=== PATIENT | male | born 1940 | race Caucasian/White ===

== ENCOUNTER 2016-06-08 15:47 | Inpatient (IN) | payer OTHER, MEDICARE ==
[2016-06-08] MEDS ORDERED: NS 500 ML IV ONE (16:05)
[2016-06-08] MEDS ORDERED: ACETAMINOPHEN 325 MG TAB PO PRN (16:05)
[2016-06-08] MEDS ORDERED: ONDANSETRON DISINTEGRATING 4 MG TAB PO PRN (16:05)
[2016-06-08] MEDS ORDERED: ONDANSETRON 4 MG/2 ML VIAL IVP PRN (16:05)
--- NOTE | 2016-06-08 17:15 | GHP ---
[f rep st] HISTORY AND PHYSICAL DATE OF ADMISSION: 06/08/2016 CHIEF COMPLAINT: Rash. HISTORY OF PRESENT ILLNESS: A 75-year-old male with a history of rectal carcinoma receiving active chemotherapy (most recent treatment was 2 weeks ago), who reports lying out in the sun during the go od weather and waking from a nap noting what he thought was either a bug or spider bite. Patient th en developed some tenderness in his forearm on that arm and then ultimately noted marked erythema an d streaking up his arm today. Patient decided to present to the Oncology Clinic for evaluation. Rigo arteaga denies any subjective fevers or chills. Denies any nausea or vomiting. Denies changes in his bowel habits, dysuria, hematuria, chest pain, and shortness of breath. SOCIAL HISTORY: Negative for tobacco. Patient is a recovering alcoholic. Denies any marijuana or illicit drugs. FAMILY HISTORY: Positive for prostate cancer in a brother. ADVANCED DIRECTIVES: Patient is full cor/full tube. His would be his medical decision maker. REVIEW OF SYSTEMS: A 10-point review of systems is negative with the exception of that reported in the HPI. PHYSICAL EXAMINATION: VITAL SIGNS: Blood pressure 120/80, heart rate 80s. Patient is afebrile, re spiratory rate 12, saturating mid 90s on room air. GENERAL: This is a healthy-appearing male in no acute distress. HEENT: Notable for moist mucous membranes. Eye exam is negative for any icterus. CARDIAC: Regular rate and rhythm. No murmurs, gallops, or rubs. PULMONARY: Clear to auscultati on bilaterally. GASTROINTESTINAL: Positive bowel sounds. Abdomen is soft and nontender in all 4 q uadrants. MUSCULOSKELETAL: Negative for any lower extremity edema. The right forearm has a notabl e punctate area consistent with a spider or bug bite with surrounding discoloration, consistent with possible necrosis, and erythema surrounding and streaking up his forearm. No axillary lymphadenopa thy is appreciated. NEUROLOGIC: The patient is alert and oriented x3. PSYCHIATRIC: Pleasant and c ooperative on interview and examination. DATA: White count is 0.49, hematocrit is 30.5, platelet count of 78. Sodium is 132, creatinine 0.9 . ASSESSMENT AND PLAN: This is a 75-year-old neutropenic male presenting with new cellulitis. 1. Acute cellulitis: Unclear prompted by a bug or spider bite. Does have extending erythema and s treaking up his arm. Will order ultrasound to rule out superficial thrombophlebitis, order blood cu ltures, and initiate broad-spectrum IV antibiotics with vancomycin and cefepime. 2. Neutropenia: Patient is 2 weeks status post his most recent chemotherapy treatment. Will monit or his counts daily. 3. Hyponatremia: Presumed hypovolemic in nature. Will give a small fluid bolus and recheck in the morning. 4. Anorexia: The patient has had very poor appetite through his chemotherapy. He has been treated with oral prednisone. We will taper that dose down to [address] Hilton, his outpatient oncologi st. 5. Hypertension: Patient is presenting normotensive. Will continue to follow his blood pressures and continue his home medications if appropriate. 6. Prophylaxis: Will hold Lovenox with platelet count of 70. DIET: Regular. DISPOSITION: Expecting greater than 2 midnights as the patient is neutropenic with an acute infecti on requiring IV antibiotics and monitoring. I discussed the case with the Dr. Singh from Oncology. Patient will be admitted to [address] [place] [id number] for IV antibiotics and care. /[id number]/MODL
[2016-06-08] MEDS: FILGRASTIM-SNDZ 480 MCG/0.8 ML SYR SC SCH (17:49)
[2016-06-08] MEDS: VANCOMYCIN HCL/NORMAL SALINE 250 ML IV SCH (17:49)
--- NOTE | 2016-06-08 18:56 | GCON ---
[f rep st] CONSULTATION ONCOLOGY INITIAL VISIT PRIMARY ONCOLOGIST: Dr. Darline Hilton. REASON FOR VISIT: Metastatic rectal cancer. HISTORY OF PRESENT ILLNESS: The patient is a 75-year-old gentleman who was diagnosed July 2015 with both a rectal cancer and a colon cancer. The rectal cancer was stage II and removed in a transanal resection. The colon cancer was also resected with a right hemicolectomy showing a stage IIIC malignancy with a T3 N2 with 14/17 positive lymph nodes. He received adjuvant FOLFOX through January 2016. In April, he was diagnosed with metastatic colon cancer to the liver, and about 2 weeks ago, he was started on FOLFIRI plus bevacizumab. 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 This was initially diagnosed in 2005 and was a grade 3+3, and treated with brachytherapy. In about 2011, he had a rising PSA and initially started on Lupron. He apparently received a dose of Xofigo in 2014, which initially seemed to cause some alteration of bowel habits and that led to the colonoscopy in which the adenocarcinoma of the colon was identified. He came into the office today complaining of redness in the right forearm by what he thinks was an insect bite. He was outside yesterday, and he noticed some discomfort and redness in his right arm. It has progressively gotten worse , and his insisted that he have it checked out today. It was in the office where they identified what appeared to be a cellulitis on the arm, but he was also significantly neutropenic. He was admitted to the hospital for antibiotics. He is currently afebrile. ALLERGIES: He has no known drug allergies. HOME MEDICATIONS: Include tamsulosin, sertraline, metoprolol, lisinopril, herbs , and also the intermittent Lupron, and the chemotherapies per HPI. PAST MEDICAL HISTORY: Chronic illnesses include metastatic colorectal cancer per HPI, prostate cancer per HPI, depression, hypertension, cholelithiasis. SURGICAL HISTORY: Includes bilateral inguinal repair, the right hemicolectomy, the transanal resection. He has had the brachytherapy to his prostate cancer. SOCIAL HISTORY: He is . He is retired from [employer]. He was previously an alcoholic, but has not drank for 24 years. He is a nonsmoker. FAMILY HISTORY: Brother has metastatic prostate cancer, and sister with breast cancer. REVIEW OF SYSTEMS: 10-point review of systems performed. Pertinent positives HPI. PHYSICAL EXAM: VITAL SIGNS: Temperature today is 98.9, pulse is 83, blood pressure 120/80. GENERAL: He is in no distress. HEENT: Unremarkable. RESPIRATORY: Lungs are clear. CARDIAC: Regular. ABDOMEN: Soft, nontender. SKIN: He has a port on the left. In the bed without under skin. Also on the skin, on his right forearm, he has what looks like an eschar that is expressing some serosanguineous fluid and significant surrounding erythema going up the forearm. NEUROLOGIC: Grossly intact. LABS: Today, white count is 500 with an ANC of less than 100, hemoglobin is 10.2 g/dL, platelet count 78,000. LFTs, alkaline phosphatase at the time of treatment was 385. It was 292 last week and 228 this week. His bilirubin is normal at 1.4. His AST and ALT are now normal, with them being significantly elevated at the time of chemotherapy. IMPRESSION: 1. Neutropenia. 2. Cellulitis. 3. Metastatic colon cancer. 4. Metastatic prostate cancer. PLAN: Cultures will be drawn and started on broad-spectrum antibiotics. Also recommend we get an ultrasound of the right arm to make sure he also does have an associated clot. Because he has active infection, I will start him on Granix tonight to help his white count come back faster. With the severe reaction, I will also check to see if he is sensitive to the effects of irinotecan. He also had some lowish counts during the 5-FU, so I will also check for those mutations as well. We will follow along with you while in the hospital. /[id number]/MODL MTDD
[2016-06-08] MEDS: HYDROCODONE/APAP 5/325 TAB PO PRN (19:51)
[2016-06-08] MEDS: CEFEPIME HCL 2 GM in D5W 100 ML IV SCH (19:51)
[2016-06-08] MEDS: METOPROLOL SUCCINATE XR 100 MG TAB PO SCH (20:41)
[2016-06-09] MEDS: CEFEPIME HCL 2 GM in D5W 100 ML IV SCH ×3 (01:33→19:23)
[2016-06-09] MEDS: HYDROCODONE/APAP 5/325 TAB PO PRN ×2 (04:47→09:04)
[2016-06-09] MEDS: VANCOMYCIN HCL/NORMAL SALINE 250 ML IV SCH ×2 (04:47→17:33)
[2016-06-09 04:53] LABS: ABSOLUTE NRBC COUNT 0.02 10^3/uL (0-0.01); ADD DIFF? NO; ADD MORPH? NO; ADD SCAN? YES; ATYPICAL LYMPHOCYTE FLAG 0 (0-99); FRAGMENT RBC FLAG 0 (0-99); HEMATOCRIT 31.2 % (40.0-51.0); HEMOGLOBIN 10.1 g/dL (13.7-17.5); LIPEMIA HEMOLYSIS FLAG 80 (0-99); MEAN CELL HEMOGLOBIN 29.2 pg (27.9-34.1); MEAN CELL HEMOGLOBIN CONCENTR. 32.4 g/dL (32.4-36.7); MEAN CELL VOLUME 90.2 fL (81.5-99.8); MEAN PLATELET VOLUME 10.6 fL (8.7-11.7); NRBC-AUTO% 0.7 % (0.0-0.2); PLATELET CLUMPS FLAG 0 (0-99); PLATELET COUNT 101 10^3/uL (150-400); RED BLOOD CELL COUNT 3.46 10^6/uL (4.40-6.38); RED CELL DISTRIBUTION WIDTH 18.2 % (11.5-15.2)
[2016-06-09 05:06] LABS: ANION GAP 12 mEq/L (8-16); CALCIUM 8.2 mg/dL (8.5-10.4); CARBON DIOXIDE 18 mEq/l (22-31); CHLORIDE 102 mEq/L (97-110); GLOMERULAR FILTRATION RATE > 60; GLUCOSE 93 mg/dL (70-100); SODIUM 132 mEq/L (134-144)
[2016-06-09 05:15] LABS: LEFT SHIFT FLG 130 (0-99)
[2016-06-09 05:47] LABS: SCAN POSITIVE
[2016-06-09 05:55] LABS: PLATELET ESTIMATE DECREASED (ADEQ)
[2016-06-09 05:56] LABS: MACROCYTES 1+; MICROCYTES 1+; POLYCHROMASIA 1+
[2016-06-09 05:57] LABS: HYPOCHROMIA 1+
[2016-06-09] MEDS ORDERED: Herbals/Supplements -Info Only PO SCH (09:00)
[2016-06-09] MEDS: predniSONE 20 MG TAB PO SCH (09:03)
[2016-06-09] MEDS: CHOLECALCIFEROL VIT D3 2,000 UNITS TAB/CAP PO SCH (09:03)
[2016-06-09] MEDS: SERTRALINE HCL 50 MG TAB PO SCH (09:03)
[2016-06-09] MEDS: LISINOPRIL 40 MG TAB PO SCH (13:27)
[2016-06-09] MEDS: ENOXAPARIN 40 MG/0.4 ML SYR SC SCH (13:28)
[2016-06-09] MEDS: FILGRASTIM-SNDZ 480 MCG/0.8 ML SYR SC SCH (13:28)
--- NOTE | 2016-06-09 13:37 | HOSPPROG ---
Hospitalist Progress Note Assessment/Plan: DIAGNOSES: -acute cellulitis right upper extremity, Pseudomonas growing in culture so far -pancytopenia with neutropenia from his chemotherapy; immune suppression due to this -colorectal cancer on current chemotherapy -hypertension PLANS: -continue cefepime for Pseudomonas, follow for antibiotic sensitivities -Continue vancomycin for the moment until cultures are negative for 48 hours for any staff -elevation and heat for the arm -dressing changes for the open area on his wrist -continue Granix -Continue Lovenox -follow cell counts closely SUBJECTIVE: Still using narcotic analgesic for pain at the cellulitis area but feels slightly better Still having hot Sitz of flashes with sweats Poor appetite OBJECTIVE Vitals reviewed: So far today stable with no fever Exam: alert oriented skin warm dry, overall color ok; cellulitic areas on his right upper extremity are improved in terms of the intensity of redness with resolution of the redness around the periphery. He still has an ecchymotic area at the site of onset of this infection with a 0.6 cm opening centrally draining a slightly opaque yellowish fluid; there is no palpable abscess here and he is moving all of his wrist hand and fingers groups with full range of motion without pain resps not labored lungs clear BSs heart regular abd soft nondistended nontender, bowel sounds present limbs warm, no edema iv site ok Culture data: Pseudomonas growing now from all blood cultures sensitivities pending Objective: Vital Signs Temp Pulse Resp BP Pulse Ox 36.4 C 59 L 20 127/69 H 99 06/09/16 08:59 06/09/16 13:14 06/09/16 13:14 06/09/16 13:27 06/09/16 13:14 Microbiology 06/08/16 17:20 Blood Panel (PCR) - Final Blood Pseudomonas Aeruginosa Laboratory Results 06/09/16 04:25 06/09/16 04:25 06/08/16 06/09/16 06/10/16 06:59 06:59 06:59 Intake Total 1250 Output Total 500 200 Balance 750 -200 ICD10 Worksheet Patient Problems: Problems Problem Status Onset Cellulitis Acute - ICD10 Problem Qualifiers (1) Cellulitis Qualifiers: Site of cellulitis: S Site of cellulitis of extremity: S Site of cellulitis of trunk: S Laterality: L
--- NOTE | 2016-06-09 14:56 | SOAPPROG ---
SOAP Progress Note Assessment/Plan: E&M for colon cancer * Metastatic colon cancer; day 15 cycle 1 Folfiri + Avastin: [id number] and DPD sent to look for deficiency. Next cycle on hold until recovery. * RUE cellulitis: improving with abx * Febrile neutropenia: resolving; since has concurrent infection will continue Zarxio until ANC>3000 * Pseudomonas Bacteremia: continue iv abx until sensitivities. Not sure if related to arm wound. Subjective: A lot of pain at the right arm wound overnight. Better today. Had some loose stools and unaware overnight that he had had a BM. Objective: Vital Signs Temp Pulse Resp BP Pulse Ox 35.8 C L 59 L 20 127/69 H 99 06/09/16 13:37 06/09/16 13:14 06/09/16 13:14 06/09/16 13:27 06/09/16 13:14 Microbiology 06/08/16 17:20 Blood Panel (PCR) - Final Blood Pseudomonas Aeruginosa Laboratory Results 06/09/16 04:25 06/09/16 04:25 06/08/16 06/09/16 06/10/16 05:59 05:59 05:59 Intake Total 1250 Output Total 500 200 Balance 750 -200 Microbiology 06/08/16 17:20 Blood Blood Panel (PCR) - Final Pseudomonas Aeruginosa 06/08/16 17:20 Blood Blood Culture - Preliminary Laboratory Tests 06/09/16 04:25 WBC 2.82 L Absolute Neuts (auto) 0.47 L Absolute Lymphs (auto) 1.86 Physical Exam - Physical Exam General Appearance: no apparent distress Respiratory: lungs clear Cardiac/Chest: regular rate, rhythm Skin: other (RUE with much less erythema and swelling; primary wound covered with dressing.) ICD10 Worksheet Patient Problems: Problems Problem Status Onset Cellulitis Acute
--- NOTE | 2016-06-09 15:19 | WOCRNPDOC ---
WOCRN Advanced Assessment Note - Skin Integrity Problem, Advanced Assess Right Lower Arm Dressing Type: Allevyn Life Dressing Description: Intact, Shadowed Exudate Amount: Scant Exudate Color: Reddish/Yellow Exudate Characteristic(s): Serosanguinous Integumentary Issue Intervention: Dressing Reinforced, Visualized Under Dressing , Silver Gel Applied Charlette Wound Tissue: Ecchymotic, Erythema (marked in ED) Charlette Wound Swelling: Mild Wound Bed Color: Red Site Odor: None Site Measurement - Head-to-Toe Length X Width X Depth (cm): 1wct1sv area of ecchymosis w/ 0.2cmx0.3cmx0.1cm wound medially. Skin Integrity Problem Comment: Small partial-thickness wound noted on RFA, within a slightly larger area of ecchymotic tissue and loose epithelium. This has the appearance of a draining/partially de-roofed blister, though patient denies that it was ever a blister. Epithelium surrounding wound is thin and friable, and was adhered to the foam dressing when site assessed. Marked erythema noted on RFA extending from R wrist to RUE, receding from these margins. No swelling and no c/o pain. Applied Silvasorb gel to wound bed, and covered w/ Adaptic Touch contact layer to prevent skin from sticking to overlying foam dressing, and possibly tearing w/ each removal. Report given supply chain program manager Julie.
[2016-06-09] MEDS: METOPROLOL SUCCINATE XR 100 MG TAB PO SCH (17:53)
[2016-06-10] MEDS: CEFEPIME HCL 2 GM in D5W 100 ML IV SCH ×3 (01:20→19:58)
[2016-06-10 05:36] LABS: ADD DIFF? NO; ADD MORPH? NO; ADD SCAN? YES; ATYPICAL LYMPHOCYTE FLAG 0 (0-99); FRAGMENT RBC FLAG 0 (0-99); HEMATOCRIT 26.1 % (40.0-51.0); HEMOGLOBIN 8.6 g/dL (13.7-17.5); LIPEMIA HEMOLYSIS FLAG 80 (0-99); MEAN CELL HEMOGLOBIN 29.5 pg (27.9-34.1); MEAN CELL VOLUME 89.4 fL (81.5-99.8); MEAN PLATELET VOLUME 11.2 fL (8.7-11.7); PLATELET CLUMPS FLAG 40 (0-99); PLATELET COUNT 56 10^3/uL (150-400); RED BLOOD CELL COUNT 2.92 10^6/uL (4.40-6.38); RED CELL DISTRIBUTION WIDTH 18.2 % (11.5-15.2)
[2016-06-10 05:42] LABS: ANION GAP 7 mEq/L (8-16); CALCIUM 7.9 mg/dL (8.5-10.4); CARBON DIOXIDE 21 mEq/l (22-31); CHLORIDE 108 mEq/L (97-110); CREATININE 0.8 mg/dL (0.7-1.3); GLOMERULAR FILTRATION RATE > 60; GLUCOSE 85 mg/dL (70-100); POTASSIUM 3.5 mEq/L (3.5-5.2); SODIUM 136 mEq/L (134-144)
[2016-06-10 05:50] LABS: LEFT SHIFT FLG 300 (0-99)
[2016-06-10] MEDS: VANCOMYCIN HCL/NORMAL SALINE 250 ML IV SCH ×2 (06:07→18:09)
[2016-06-10 06:48] LABS: SCAN POSITIVE
[2016-06-10 06:57] LABS: ECHINOCYTES 1+; PLATELET ESTIMATE DECREASED (ADEQ); POLYCHROMASIA 1+
[2016-06-10] MEDS: SERTRALINE HCL 50 MG TAB PO SCH (08:17)
[2016-06-10] MEDS: predniSONE 20 MG TAB PO SCH (08:18)
[2016-06-10] MEDS: CHOLECALCIFEROL VIT D3 2,000 UNITS TAB/CAP PO SCH (08:18)
--- NOTE | 2016-06-10 09:42 | SOAPPROG ---
SOAP Progress Note Assessment/Plan: Assessment: Plan: Subjective: feeling better today. Arm is not hurting any more. Diarrhea resolved as well. Objective: exam: NAD, comfortable Lungs CTAB CV RRR no MGR ABd: +BS NT ND Ext: R arm - erythema improved. lesion ("bug bite") under dressing Neuro: a+ox3. Vital Signs Temp Pulse Resp BP Pulse Ox 37.4 C 67 16 117/61 97 06/10/16 07:28 06/10/16 07:28 06/10/16 07:28 06/10/16 07:28 06/10/16 07:28 Microbiology 06/08/16 17:20 Blood Panel (PCR) - Final Blood Pseudomonas Aeruginosa Laboratory Results 06/10/16 05:02 06/10/16 05:02 06/09/16 06/10/16 06/11/16 05:59 05:59 05:59 Intake Total 1250 2000 Output Total 500 200 Balance 750 1800 ICD10 Worksheet Patient Problems: Problems Problem Status Onset Cellulitis Acute
[2016-06-10] MEDS: ENOXAPARIN 40 MG/0.4 ML SYR SC SCH (09:54)
[2016-06-10] MEDS: LISINOPRIL 40 MG TAB PO SCH (11:02)
[2016-06-10] MEDS: FILGRASTIM-SNDZ 480 MCG/0.8 ML SYR SC SCH (15:03)
--- NOTE | 2016-06-10 16:58 | HOSPPROG ---
Hospitalist Progress Note Assessment/Plan: DIAGNOSES: -acute cellulitis right upper extremity, Pseudomonas growing in culture so far -pancytopenia with neutropenia from his chemotherapy; immune suppression due to this -colorectal cancer on current chemotherapy -hypertension PLANS: -continue cefepime for Pseudomonas, follow for antibiotic sensitivities -discontinue vancomycin at this time -elevation and heat for the arm -dressing changes for the open area on his wrist -continue Granix -Continue Lovenox -follow cell counts closely SUBJECTIVE: less pain today, and feels better energy better appetite no chills, sob, nausea, diarrhea OBJECTIVE Vitals reviewed: So far today stable with no fever Exam: alert oriented skin warm dry, overall color ok; cellulitic areas on his right upper extremity continue to improve. Ecchymotic area at the site of onset of this infection unchanged with a 0.6 cm opening centrally draining a slightly opaque yellowish fluid; there is no palpable abscess here and he is moving all of his wrist hand and fingers groups with full range of motion without pain resps not labored lungs clear BSs heart regular abd soft nondistended nontender, bowel sounds present limbs warm, no edema iv site ok Culture data: Pseudomonas growing now from all blood cultures, sensitivities pending Objective: Vital Signs Temp Pulse Resp BP Pulse Ox 36.5 C 73 20 110/65 96 06/10/16 15:05 06/10/16 15:05 06/10/16 15:05 06/10/16 15:05 06/10/16 15:05 Microbiology 06/08/16 17:20 Blood Panel (PCR) - Final Blood Pseudomonas Aeruginosa Laboratory Results 06/10/16 05:02 06/10/16 05:02 06/09/16 06/10/16 06/11/16 06:59 06:59 06:59 Intake Total 1250 2000 600 Output Total 500 200 625 Balance 750 1800 -25 ICD10 Worksheet Patient Problems: Problems Problem Status Onset Cellulitis Acute - ICD10 Problem Qualifiers (1) Cellulitis Qualifiers: Site of cellulitis: S Site of cellulitis of extremity: S Site of cellulitis of trunk: S Laterality: L
[2016-06-10] MEDS: METOPROLOL SUCCINATE XR 100 MG TAB PO SCH (18:06)
[2016-06-11] MEDS: CEFEPIME HCL 2 GM in D5W 100 ML IV SCH ×2 (02:40→10:47)
[2016-06-11 04:02] LABS: ABSOLUTE IMMATURE GRANULOCYTES 0.05 10^3/uL (0.00-0.10); ADD DIFF? NO; ADD MORPH? NO; ADD SCAN? YES; ATYPICAL LYMPHOCYTE FLAG 0 (0-99); FRAGMENT RBC FLAG 20 (0-99); HEMATOCRIT 25.6 % (40.0-51.0); HEMOGLOBIN 8.4 g/dL (13.7-17.5); LIPEMIA HEMOLYSIS FLAG 80 (0-99); MEAN CELL HEMOGLOBIN 29.8 pg (27.9-34.1); MEAN CELL HEMOGLOBIN CONCENTR. 32.8 g/dL (32.4-36.7); MEAN CELL VOLUME 90.8 fL (81.5-99.8); MEAN PLATELET VOLUME 12.5 fL (8.7-11.7); PLATELET CLUMPS FLAG 10 (0-99); PLATELET COUNT 79 10^3/uL (150-400); RED BLOOD CELL COUNT 2.82 10^6/uL (4.40-6.38); RED CELL DISTRIBUTION WIDTH 18.6 % (11.5-15.2)
[2016-06-11 04:06] LABS: LEFT SHIFT FLG 300 (0-99)
[2016-06-11 04:07] LABS: ANION GAP 5 mEq/L (8-16); CALCIUM 7.9 mg/dL (8.5-10.4); CARBON DIOXIDE 23 mEq/l (22-31); CHLORIDE 109 mEq/L (97-110); CREATININE 0.7 mg/dL (0.7-1.3); GLOMERULAR FILTRATION RATE > 60; GLUCOSE 93 mg/dL (70-100); POTASSIUM 3.7 mEq/L (3.5-5.2); SODIUM 137 mEq/L (134-144)
[2016-06-11 04:39] LABS: SCAN POSITIVE
[2016-06-11 04:45] LABS: HYPOCHROMIA 1+; POLYCHROMASIA 1+
[2016-06-11 04:46] LABS: PLATELET ESTIMATE DECREASED (ADEQ)
[2016-06-11] MEDS: VANCOMYCIN HCL/NORMAL SALINE 250 ML IV SCH (05:02)
[2016-06-11 05:07] VITALS: RESP 16
[2016-06-11 08:19] VITALS: TEMP 97.7; O2SAT 97
[2016-06-11] MEDS: CHOLECALCIFEROL VIT D3 2,000 UNITS TAB/CAP PO SCH (08:23)
[2016-06-11] MEDS: SERTRALINE HCL 50 MG TAB PO SCH (08:23)
[2016-06-11] MEDS: ENOXAPARIN 40 MG/0.4 ML SYR SC SCH (08:24)
[2016-06-11] MEDS: predniSONE 20 MG TAB PO SCH (08:24)
[2016-06-11 09:13] VITALS: BP 132/70; PULSE 88
--- NOTE | 2016-06-11 11:20 | SOAPPROG ---
SOAP Progress Note Assessment/Plan: Assessment: 1. Metastatic colorectal cancer, s/p 1 cycle FOLIRI 2. Pseudomonas bacteremia 3. R arm cellulitis 4. Febrile neutropenia Plan: - pt can be changed to levofloxacin, 2 week course - d/c granix - ok for discharge from my perspective - f/u with Dr. Hilton in 1-2 weeks to resume chemo, w/ dose modifications d/w dr vargas 06/11/16 11:18 Subjective: feels much better. would like to go home. Objective: exam: NAD arm: erythema much improved Lungs CTAB CV RRR no MGR ABd: +BS NT ND Ext: no edema Vital Signs Temp Pulse Resp BP Pulse Ox 36.5 C 88 16 132/70 H 97 06/11/16 09:10 06/11/16 09:10 06/11/16 09:10 06/11/16 09:10 06/11/16 09:10 Microbiology 06/08/16 17:20 Blood Panel (PCR) - Final Blood Pseudomonas Aeruginosa Laboratory Results 06/11/16 03:45 06/11/16 03:45 06/10/16 06/11/16 06/12/16 05:59 05:59 05:59 Intake Total 19990 Output Total 200 1825 Balance 1800 1975 ICD10 Worksheet Patient Problems: Problems Problem Status Onset Cellulitis Acute
--- NOTE | 2016-06-11 11:36 | PDDCSUM ---
Discharge Summary Discharge Summary: DISCHARGE DIAGNOSES: -acute cellulitis of R arm with open wound -pseudomonas bacteremia -neutropenic fever -neutropenia due to chemotherapy -metastatic colorectal [place] CONSULTANTS: oncology service HOSPITAL COURSE SUMMARY: This patient on chemotherapy presented with neutropenic fever and a R arm cellulitis, with pseudomonas aerogenosa bacteremia, gomez sensitive. He was treated here with antibiotics, wound care, and elevation, and granix. He has responded quite well with nearly complete resolution of signs of infection of the arm; a small open wound remains on volar forearm. He has good recovery of his white cell counts with the granix. There have been no complications here. He is stable for DC to home, will complete 2 weeks total of abx, with po levaquin on discharge. PENDING TEST RESULTS: none MEDICATION CHANGES: addition of levaquin 750 daily to complete 14 days total abx FOLLOW-UP PLAN: CC this week Greater than 35 minutes bedside and care coordination time today
[2016-06-11] MEDS: LISINOPRIL 40 MG TAB PO SCH (12:02)
== END 2016-06-11 13:02 | disposition home or self-care (01) | DRG 603 ==
LOC: OBSVTOIN 16:20 → F1N 16:20
PROVIDERS: ADMIT Hospitalist; ATTEND Internal Medicine
DX: L03.113 Cellulitis of right upper limb (principal); R78.81 Bacteremia; B96.5 Pseudomonas (aeruginosa) (mallei) (pseudomallei) as the cause of diseases classified elsewhere; D70.1 Agranulocytosis secondary to cancer chemotherapy; C19 Malignant neoplasm of rectosigmoid junction; C78.7 Secondary malignant neoplasm of liver and intrahepatic bile duct; E87.1 Hypo-osmolality and hyponatremia; I10 Essential (primary) hypertension
CPT/HCPCS: 97161-GP; 97165-GO; G8978-GP-CI; G8979-GP-CI; G8980-GP-CI; G8987-GO-CI; G8988-GO-CI; G8989-GO-CI; J0692; J1642; J1650; J3370; Q5101-ZA

== ENCOUNTER → 2016-07-17 | Outpatient (CLI) | payer OTHER, MEDICARE ==
[~2016-07-17] MED LIST: GADOBUTROL 10 ML VIAL IVP ONE
== END ==
LOC: FIMAGING 16:19
PROVIDERS: ATTEND Nurse Practitioner
DX: S09.90XA Unspecified injury of head, initial encounter (principal); R41.82 Altered mental status, unspecified; C18.9 Malignant neoplasm of colon, unspecified
CPT/HCPCS: 70553; A9585

== ENCOUNTER 2016-08-23 11:07 | Inpatient (IN) | payer OTHER, MEDICARE ==
--- NOTE | 2016-08-23 12:11 | CPEKG ---
Heart Rate: 67 RR Interval: 896 P-R Interval: 148 QRSD Interval: 80 QT Interval: 416 QTC Interval: 439 P Banner: -12 QRS Banner: -2 T Wave Banner: 6 EKG Severity - ABNORMAL ECG - EKG Impression: SINUS RHYTHM EKG Impression: MULTIPLE ATRIAL PREMATURE COMPLEXES EKG Impression: LOW VOLTAGE IN FRONTAL LEADS Electronically Signed By: Huong Amezcua 23-Aug-2016 14:48:31
[2016-08-23 12:13] LABS: % IMMATURE GRANULYOCYTES 0.7 % (0.0-1.1); ABSOLUTE IMMATURE GRANULOCYTES 0.13 10^3/uL (0.00-0.10); ADD DIFF? NO; ADD MORPH? NO; ADD SCAN? NO; ATYPICAL LYMPHOCYTE FLAG 0 (0-99); FRAGMENT RBC FLAG 20 (0-99); HEMOGLOBIN 8.9 g/dL (13.7-17.5); LEFT SHIFT FLG 20 (0-99); LIPEMIA HEMOLYSIS FLAG 80 (0-99); MEAN CELL HEMOGLOBIN 30.6 pg (27.9-34.1); MEAN CELL HEMOGLOBIN CONCENTR. 30.7 g/dL (32.4-36.7); MEAN CELL VOLUME 99.7 fL (81.5-99.8); MEAN PLATELET VOLUME 11.7 fL (8.7-11.7); PLATELET CLUMPS FLAG 0 (0-99); PLATELET COUNT 212 10^3/uL (150-400); RED BLOOD CELL COUNT 2.91 10^6/uL (4.40-6.38); RED CELL DISTRIBUTION WIDTH 17.6 % (11.5-15.2)
--- NOTE | 2016-08-23 12:17 | EDPHY ---
H & P Stated Complaint: +sob fatigue HPI/ROS: CHIEF COMPLAINT: Weakness, possible pneumonia HISTORY OF PRESENT ILLNESS: Patient presents with spouse. Spouse is concern for pneumonia. He has been increasingly fatigued, occasionally altered and appearing heel to her. She said the last time he appear like this, he was diagnosed with sepsis from pneumonia. I was 28 days ago at [facility]. He has had no cough or fever, but he did not have those for the previous diagnosis either. Has a history of metastatic prostate cancer to the liver. He was at the cancer center today for CT scans of the neck, chest, abdomen and pelvis. He is found to be hypotensive there, thus they sent him upstairs for fluid. He was administered 500 mL of the fluid sent to the emergency department for hypertension and the above complaints. He has had no chest pain. He had no abdominal urinary complaints. He is not altered at this time. No other associated complaints or modifying factors. REVIEW OF SYSTEMS: Ten systems reviewed and are negative unless otherwise noted in the HPI PAST MEDICAL HISTORY: Multiple reviewed. Significant for recent diagnosis of pneumonia and prostate cancer with metastases to the liver SOCIAL HISTORY: Lives at home with his FAMILY HISTORY: Noncontributory EXAMINATION General Appearance: Alert, no distress, frail Head: normocephalic, atraumatic Eyes: Pupils equal and round, no conjunctival pallor or injection ENT, Mouth: Mucous membranes moist Neck: Normal inspection, supple, non-tender Respiratory: Crackles at the bases. Mild consolidation. Minimal inspiration. No respiratory distress Cardiovascular: Regular rate and rhythm. Systolic murmur. Pulses intact distally. Gastrointestinal: Abdomen is soft and nontender Back: non-tender, no bony abnormalities Neurological: GCS 15. Cranial nerves 2-12 grossly intact. A&O, nonfocal, normal gait Skin: Warm and dry, no rash Extremities: Nontender, no pedal edema Psychiatric: Mood and affect normal DIFFERENTIAL DIAGNOSES: Including but not limited to sepsis, severe sepsis, hospital-acquired pneumonia , congestive heart failure, fluid overload, pleural effusion, MDM: 11:50 a.m. Weakness, shortness of breath and fatigue. Spouse is concerned that he may have pneumonia again. Does not have a cough or fever but he did not with previous diagnoses either. He also recently resumed his blood pressure medication which may explain his mild hypotension. We have ordered sepsis workup due to his history. This is all currently being done. He is resting comfortably, awake and alert without cephalopathy at this time. 12:35 p.m. Sepsis due to suspected pneumonia. The patient does have a CT scan was performed at the Cancer Center. I discussed the CT scan with Dr. Ty. He feels that there are infiltrates, but is difficult to ascertain if this is truly pneumonia versus fluid overload. There are pleural effusions noted a.m. bibasilar atelectasis. Given the patient's clinical presentation, leukocytosis , elevated lactic acid, we are treating this as a hospital-acquired pneumonia with diagnosis of severe sepsis. IV fluid resuscitation as commands. He is awake and alert, mentating appropriately. There is no encephalopathy at this time. There is a mild elevation in the creatinine at this time. Currently discussing the case with the hospitalist for admission. His left subclavian port is currently being access. 1:00 p.m. Patient has been admitted for severe sepsis. His pressure is improving significantly. We will administer 1700 mL of fluid as he did receive 500 mL as immediately prior to arrival, bring him up to the required bolus for severe sepsis. He continues to mentate appropriately. No encephalopathy. No other associated complaints at this time. He is admitted in stable condition SUPERVISION: Patient was evaluated in conjunction with the supervising physician. Please see their note for details. Source: Patient, Family Exam Limitations: No limitations - Personal History Current Tetanus/Diphtheria Vaccine: Yes Current Tetanus Diphtheria and Acellular Pertussis (TDAP): Yes - Medical/Surgical History Hx Asthma: No Hx Chronic Respiratory Disease: No Hx Diabetes: No Hx Cardiac Disease: No Hx Renal Disease: No Hx Cirrhosis: No Hx Alcoholism: No Hx HIV/AIDS: No Hx Splenectomy or Spleen Trauma: No Other PMH: Colon cancer, prostate cancer, HTN, hernia repair, colon resection, bicep tendon repair - Social History Smoking Status: Never smoked Constitutional: Initial Vital Signs Temperature (C) 96.8 F 08/23/16 11:10 Heart Rate 73 08/23/16 11:10 Respiratory Rate 16 08/23/16 11:10 Blood Pressure 86/52 L 08/23/16 11:10 O2 Sat (%) 99 08/23/16 11:10 O2 Delivery Mode Room Air Allergies/Adverse Reactions: No Known Allergies Allergy (Unverified 08/18/15 10:45) Home Medications: Medication Instructions Recorded Herbals/Supplements -Info Only 1 ea PO DAILY 08/18/15 Lisinopril [Zestril 40 mg (*)] 40 mg PO DAILY 08/18/15 Metoprolol Succinate Xr [Toprol Xl 100 mg PO DAILY18 08/18/15 100 mg (*)] Sertraline HCl [Zoloft 50mg (*)] 50 mg PO DAILY 08/18/15 Cholecalciferol Vit D3 [Vitamin D3 5,000 units PO DAILY 06/08/16 (*)] predniSONE 20 mg PO DAILY 06/08/16 Filgrastim-Sndz [Zarxio (*)] 480 mcg SC DAILY AT 2PM #0 syr 06/11/16 levOFLOXACIN [levAQUIN (*)] 750 mg PO DAILY #10 tab 06/11/16 Departure - Departure Disposition: [facility] Inpatient Acute Clinical Impression: Severe sepsis, Nosocomial pneumonia Condition: Good Referrals: Kali Hilton MD [Primary Care Provider] - As per Instructions
[2016-08-23 12:19] LABS: APTT 34.8 SEC (23.0-38.0); INR 1.36 (0.83-1.16); PROTIME(PATIENT) 16.8 SEC (12.0-15.0)
[2016-08-23 12:20] LABS: ANION GAP 11 mEq/L (8-16); BILIRUBIN,TOTAL 1.6 mg/dL (0.1-1.4); CALCIUM 8.4 mg/dL (8.5-10.4); CARBON DIOXIDE 19 mEq/l (22-31); CHLORIDE 105 mEq/L (97-110); CREATININE 1.5 mg/dL (0.7-1.3); GLOMERULAR FILTRATION RATE 45; GLUCOSE 98 mg/dL (70-100); POTASSIUM 4.3 mEq/L (3.5-5.2); SODIUM 135 mEq/L (134-144)
[2016-08-23] MEDS ORDERED: PIPERACILLIN/TAZO 4.5 GM/DEX 100 ML IV ONE (12:22)
[2016-08-23] MEDS ORDERED: VANCOMYCIN HCL/NORMAL SALINE 250 ML IV ONE (12:23)
[2016-08-23] MEDS: NS 2,200 ML IV ONE (12:26)
[2016-08-23 13:03] LABS: LACGHOST ORDER
[2016-08-23] MEDS ORDERED: LORazepam 2 MG/ML INJ IVP PRN (14:54)
[2016-08-23] MEDS ORDERED: LORazepam 0.5 MG TAB PO PRN (14:54)
[2016-08-23] MEDS ORDERED: ALBUTEROL 3 ML DEYVIAL IH PRN (14:54)
[2016-08-23] MEDS ORDERED: ALBUTEROL 200 PUFFS/18 GM MDI IH PRN (14:54)
[2016-08-23] MEDS ORDERED: ACETAMINOPHEN 325 MG TAB PO PRN (14:54)
[2016-08-23] MEDS ORDERED: ONDANSETRON DISINTEGRATING 4 MG TAB PO PRN (14:54)
[2016-08-23] MEDS ORDERED: ZOLPIDEM TARTRATE 5 MG TAB PO PRN (14:54)
[2016-08-23] MEDS ORDERED: NS 1,000 ML IV SCH (15:00)
--- NOTE | 2016-08-23 15:41 | GHP ---
[f rep st] HISTORY AND PHYSICAL DATE OF ADMISSION: 08/23/2016 CHIEF COMPLAINT: Fatigue and weakness. HISTORY OF PRESENT ILLNESS: This is an elderly male with a known history of metastatic colon carcin dolly, who presents with a 2-day history of increasing weakness and fatigue without fever, chills, swe ats, chest pain, shortness of breath, cough, nausea, or vomiting. He was admitted 1 month ago at [facility] with a diagnosis of pneumonia. He was discharged to home with the assistance of his . He was on home O2 at 5 L/min which is declined to 2 L/min. He was improving very slow ly up until 2 days [employer]. His highest level of function, though, had been to use a walker and with li mited mobility. The describes that he has a very poor appetite and eats very poorly, but does not describe any symptoms consistent with a possible aspiration, as he has had no coughing with drin yessi liquids or eating. Two days [employer] he developed increasing weakness and no interest in food, but again denied having a cough or fever. Noted that he has a diagnosis of prostate CA 10 years ago but also a diagnosis of colon carcinoma. He had a colonic resection 1 year ago and has been undergoing chemotherapy for the metastatic disease to his liver. Today at [facility] he had a CT scan of his neck, chest, abdomen, and pelvis. There at [facility] was found to be hypotensive and was given fluids of 500 c c and sent to the emergency department for the hypotension. Again, he had no complaints of chest pa in, shortness of breath, abdominal pain, nausea, or vomiting. He denies fever, chills, or sweats. He admits to a very poor appetite and limited eating, and the indicates he has not been drinkin g fluids well either. PAST MEDICAL HISTORY: 1. Prostate cancer diagnosed 10 years ago. 2. Colon carcinoma diagnosed 1 year ago and status post a colonic resection. 3. He denies fever denies asthma, allergies, high blood pressure, diabetes, and renal impairment. SOCIAL HISTORY: He lives at home with his . 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 Tobacco: He has a 13-hike-xzlw history of tobacco but stopped 50 years ago. Alcohol: None. Dr turk: None. FAMILY HISTORY: Positive for breast cancer in a sister and an unknown cancer in a brother. REVIEW OF SYSTEMS: A 10-point review of systems is otherwise negative. Specifically, he denies tamika k pain, dysuria, frequency, and hematuria. He also denies any recent trauma, swelling, or pain in t he arms and legs, and no joint disorders. PHYSICAL EXAMINATION: GENERAL: This is a frail, pale-appearing gentleman who appears weak and tire d. He is not in any distress. VITAL SIGNS: He was initially hypotensive on presentation in the em ergency department and is now normotensive following fluid resuscitation. Heart rate is in the 60s to 70s, sinus rhythm on the monitor. He is 97% saturated on 2 L with nasal prongs. HEENT/NECK: To ngue and buccal mucosa are without lesions. Teeth are in good repair. No adenopathy is noted in th e cervical or supraclavicular region. Neck is supple without meningismus. No scleral icterus is ap preciated. CHEST: Wall nontender to palpation. He has a poor inspiratory excursion, and there is increased dullness noted at the bases with decreased breath sounds bilaterally, without wheezing or rales. HEART: Singular S1 and S2. No murmur or gallop. ABDOMEN: Appears distended. Normoactive bowel sounds. No masses, tenderness, or organomegaly. EXTREMITIES: He has perhaps 1+ to trace pe ripheral edema. No palpable cords. Negative Homans sign. NEUROLOGIC: Oriented x3 male. Cranial nerves 2 through 12 are intact to specific testing. LABORATORY DATA: WBC is elevated at 18,000 with a hemoglobin low at 8.9, and left shifted with pred ominance of neutrophils. His INR is slightly elevated at 1.3. Lactate is elevated at 3.1 and fell after fluid resuscitation to 2.3. Chemistry shows evidence of acute kidney injury with an elevated creatinine of 1.5 and a BUN of 29; otherwise normal. His bilirubin is also elevated at 1.6. Albumi n low at 2.2. Two blood cultures are currently pending. Of note, he grew Pseudomonas aeruginosa, from 2 blood cul tures on 06/08/2016. Review of the CT scan done at [facility] shows in the chest that he has some alveolar infiltration and chuck ateral small pleural effusions with a slightly enlarged heart, though no signs of a pleural effusion . The abdomen reveals findings of numerous gallstones with perhaps an enlarged gallbladder but with out evidence of a thickened wall. Renal calculus is noted in the right renal pelvis, along with daria dence of hydronephrosis and dilation of the renal pelvis. Some ascites is also noted. Additionally , liver reveals multiple areas of metastases with areas of central necrosis within metastases indica tive of a positive response to his recent chemotherapy. This x-ray was reviewed by myself and with Radiology. ASSESSMENT: 1. Acute sepsis with an elevated lactate, hypotension, and leukocytosis. The presentation would jackman ggest a possible infectious source; although, he does not have tachypnea or tachycardia, and his oxy gen saturation is at normal for him, as he is on 2 L with adequate oxygenation. Thus, a possible in fectious source could be not only a possible pneumonia, which would make it a nosocomial infection, but also possibly the gallbladder with his gallstones; although, there is no right upper quadrant te nderness or complaints of nausea or vomiting. In addition, he shows signs of hydronephrosis of the right kidney and, again, this has occurred without symptoms. A urinalysis will be ordered to check for white cells and red cells. Initially he was hypotensive, but it seems to have responded with fl uid resuscitation. In light of the possible nosocomial nature of the infection, he will be started on cefepime to cover Pseudomonas. 2. Metastatic colon carcinoma with known prior history of prostatic carcinoma. This gentleman is f ollowed by Dr. Kali Hilton, and Oncology will be consulted. CT scan would indicate that he is res ponding to chemotherapy with necrosis centrally of the metastases to the liver. His elevated biliru bin is likely secondary to the extensive metastatic disease of the liver. An abdominal ultrasound w ill be ordered to check for dilation of the cystic and common duct, and the possibility of an acute cholecystitis. 3. Parenchymal infiltrates with bilateral pleural effusions. It is unclear if this truly represent s an infection, although he does have a leukocytosis and some hypoxemia; although, I believe his hyp oxemia is at his baseline. He has no prior history of coronary disease, although a cardiac echo kavitha l be ordered to check for possible pericardial effusion and cardiac dysfunction with possible conges tive heart failure. 4. Severe protein caloric malnutrition. Over the period of the last month, the gentleman's albumin has been falling and, per history, he has a very poor appetite and has been eating very poorly. Sh ould we not be able to maintain adequate caloric intake orally, then a feeding tube may be justified . A dietary consult and calorie count will be ordered. 5. His code status is full. 6. Deep vein thrombosis prophylaxis will be with Lovenox. BILLING: The gentleman to be admitted to inpatient status. /[id number]/MODL
[2016-08-23 15:43] LABS: MAGNESIUM 1.8 mg/dL (1.6-2.3)
[2016-08-23 15:54] LABS: TROPONIN I < 0.012 ng/mL (0-0.034)
[2016-08-23] MEDS ORDERED: IPRATROPIUM/ALBUTEROL 3 ML DEYVIAL IH SCH (16:00)
--- NOTE | 2016-08-23 16:47 | ECHO ---
[id number] + + [address] : : [place] [address] : : [phone] + Adult Echocardiographic Report + -------+ :Name: DANNI CARRERO CStudy Date: 08/23/2016 03:19 PM : : Hospital Admission Number: [id number] Locati on: 252: :: 1940 Gender: Male Height: 69 in : :Age: 75 yrs Race: WH Weight: 164 lb : :Reason For Study: Eval for Pericardial Effusion : : BSA: 1.9 meter s2 : :History: Liver and Colon CA, Hypotension and low voltage EKG : + -------+ MMode/2D Measurements \T\ Calculations IVSd: 0.85 cm LVIDd: 3.9 cm FS: 33.8 % Ao root diam: 2.9 cm LVPWd: 0.98 cm LVIDs: 2.6 cm EDV(Teich): 66.2 ml ACS: 2.4 cm ESV(Teich): 24.3 ml EF(Teich): 63.2 % Normal Measurement Values: + + :LVIDd (3.5-5.7cm) IVSd (0.6-1.1cm) LVPWd (0.6-1.1cm) Aortic Root (2.0-3.7cm)Left Atrium (1.5-4.0cm): :LV Vol(d) (76-115ml) LV Vol(s) (29-48ml) Ejec Fraction (50-65%)PV Abhay (0.6- 1.2m/s) TV Abhay (0.4-1.0m/s) : :MV E Abhay (0.8-1.0m/s)MV A Abhay (0.3-1.0m/s)LVOT Abhay (0.7-1.2m/s) Asc Ao Abhay ( 0.9-1.8m/s) : + + Doppler Measurements \T\ Calculations MV E max abhay: Ao V2 max: LV V1 max: PA V2 max: 52.3 cm/sec 105.9 cm/sec 92.3 cm/sec 74.7 cm/sec MV A max abhay: Ao max P.5 mmHg LV V1 max PG: PA max P.6 cm/sec 3.4 mmHg 2.2 mmHg MV E/A: 0.72 Left Ventricle The left ventricle is normal in size. There is normal left ventricular wall thickness. The left ventricular ejection fraction is normal. There is Doppler evidence for diastolic dysfunction. Ejection Fraction = 64%. Right Ventricle The right ventricle is normal in size and function. Atria The left atrium is mildly dilated. Right atrial size is normal. Mitral Valve The mitral valve is normal in structure and function. There is no evidence of mitral valve prolapse. There is no mitral valve stenosis. There is no mitral regurgitation noted. Tricuspid Valve Normal tricuspid valve. No tricuspid regurgitation. Aortic Valve The aortic valve is normal in structure and function. Mild Aortic Valve Calcification. There is no aortic stenosis. There is no aortic insufficiency. Pulmonic Valve The pulmonic valve is normal in structure and function. There is no pulmonic valvular regurgitation. Great Vessels The aortic root is normal size. Pericardium/Pleural There is no pericardial effusion. There is a moderate pleural effusion. Conclusion A complete two-dimensional transthoracic echocardiogram was performed (2D, M-mode, Doppler and color flow Doppler). Technically limited study with poor acoustic windows. The left ventricular ejection fraction is normal. There is Doppler evidence for diastolic dysfunction. Ejection Fraction = 64%. There are no obvious wall motion abnormalities however these cannot be excluded based on this study. The right ventricle is normal in size and function. The mitral valve is normal in structure and function. The aortic valve is normal in structure and function. There is no pericardial effusion. There is a moderate pleural effusion. The left atrium is mildly dilated. Final Reading Physician: Dusty Dodson signed on 08/23/2016 04:46 PM Ordering Physician: Joaquim Lai Performed By: Kishore Wolff, CS
[2016-08-23] MEDS ORDERED: ALTEPLASE 2 MG VIAL IVP PRN (16:51)
[2016-08-23] MEDS ORDERED: ALBUMIN 5% 500 ML IV ONE (16:53)
[2016-08-23] MEDS ORDERED: IPRATROPIUM/ALBUTEROL 3 ML DEYVIAL IH PRN (17:15)
[2016-08-23 17:21] LABS: COLOR AMBER; LEUKOCYTE ESTERASE,URINE 2+ (NEGATIVE); NITRITE,URINE NEGATIVE (NEGATIVE)
[2016-08-23 17:27] LABS: HYALINE CASTS 25-50 /lpf (0-1); MUCUS 1+ /lpf (NONE-1+); RBC,URINE 15-25 /hpf (0-3); WBC,URINE 50-182 /hpf (0-3)
[2016-08-23] MEDS: METOPROLOL SUCCINATE XR 50 MG TAB PO SCH (18:37)
--- NOTE | 2016-08-23 19:31 | GCON ---
[f rep st] CONSULTATION ONCOLOGY INITIAL VISIT PRIMARY ONCOLOGIST: Kali Hilton MD. REASON FOR CONSULTATION: Metastatic colon cancer. HISTORY OF PRESENT ILLNESS: The patient is a 75-year-old gentleman diagnosed in July 2015 with both a rectal and colon cancer. The rectal cancer was a stage II and resected transanally. The colon c ancer was a stage IIIc (T3, N2) with 14/17 positive lymph nodes. He underwent a right hemicolectomy , followed by adjuvant FOLFOX through January 2016. Unfortunately, in April 2016, he was diagnosed with metastatic colon cancer to the liver, and has been on FOLFIRI plus bevacizumab. He last recei usha chemotherapy about 5 weeks ago. About 3 weeks ago, he was in the hospital at, I believe, [facility], for a diagnosis of pneumonia. Researching some of the records reported they did not isola te an organism. After going home, he was weak, but was slowly getting better up until about 2 days ago, when he started feeling weaker again. He denies any fever at home. He does have chronic loose stools that has been going on for about 6 months. He actually came in the office for just a routin e visit, but his blood pressure is very low, so he was referred to the emergency room, and admitted to the hospital under a sepsis-like protocol. He denies any chest pain or shortness of breath. He denies any current nausea or vomiting, or fever or chills. His appetite has been poor, and he is ea ting mostly just liquids. Currently, he feels tired, but no other acute complaints. ALLERGIES: He has no known drug allergies. MEDICATIONS: At home include Lomotil, Proventil, vitamin D, metoprolol, and sertraline. PAST MEDICAL HISTORY: Chronic illnesses include: 1. Rectal cancer, as per HPI. 2. Colon cancer, as per HPI. 3. Prostate cancer, initially diagnosed 2005. It was a grade 3+3, treated with brachytherapy. In 2011, he had a rising PSA, and started on Lupron, and then in the records indicated the dose of Xofi go in 2014 that caused some sort of alteration of bowel habits. This is what led to the colonoscopy where the colon cancer was identified. 4. Depression. 5. Hypertension. 6. Cholelithiasis. 7. He was admitted to the hospital in May with neutropenic fever and right arm cellulitis. He gr ew out Pseudomonas aeruginosa that was pansensitive. PAST SURGICAL HISTORY: Includes bilateral inguinal repair, right hemicolectomy, transanal resection of rectal cancer, and brachytherapy to prostate cancer. SOCIAL HISTORY: He is . Retired from [employer]. States that he previously was an alcoholic, but has not drank for 24 years. He is a nonsmoker. FAMILY HISTORY: Significant for prostate cancer in his brother, and breast cancer in his sister. REVIEW OF SYSTEMS: Ten-point review of systems was performed, and pertinent positives as in HPI, ot herwise negative. PHYSICAL EXAM: VITAL SIGNS: On arrival to the ER, temperature is 36, pulse 73, blood pressure was only 86/52, currently his blood pressure is 96/58, pulse is 68. He is afebrile. GENERAL: He is an elderly man in no distress. HEENT: Unremarkable. LUNGS: Reveal some subtle crackles. CARDIAC: Regular. I do not appreciate a rub. ABDOMEN: Soft. He is undergoing abdominal ultrasound at thi s time. NEUROLOGICAL: He is oriented. There were no focal findings. LABORATORY DATA: White count is 18,000, and his white count has been elevated over the last month, hemoglobin is 8.9 g/dL, which is relatively stable over the last month, platelet count is 212,000. Lactic acid is high at 3.1. Total bilirubin is 1.6. BNP was 2500. BUN and creatinine are 29 and 1 .5; that is a little higher than his baseline of around 0.8-1. IMPRESSION: 1. Metastatic colon cancer, apparently showing signs of response on recent CT scan. I do not have that official report available at this time. 2. Hypotension and sepsis-like syndrome. The source of the drop in blood pressure is unclear at this time. It does not seem like it would be associated with chemotherapy, since it has been over a month since his last dose. He was also admi tted to the hospital a few weeks ago with what was called a bilateral pneumonia. I have spoken to alok roche hospitalist, and they are going to evaluate his cardiac status, and start him on antibiotics. I will see if I can follow up on the results of his most recent CT scan. We will follow along with you while in the hospital. /[id number]/MODL
[2016-08-23] MEDS: CEFEPIME HCL 1 GM in D5W 50 ML IV SCH (21:57)
[2016-08-24 04:22] LABS: % IMMATURE GRANULYOCYTES 0.9 % (0.0-1.1); ABSOLUTE IMMATURE GRANULOCYTES 0.13 10^3/uL (0.00-0.10); ADD DIFF? NO; ADD MORPH? YES; ADD SCAN? NO; ATYPICAL LYMPHOCYTE FLAG 0 (0-99); FRAGMENT RBC FLAG 40 (0-99); HEMATOCRIT 22.1 % (40.0-51.0); LEFT SHIFT FLG 10 (0-99); LIPEMIA HEMOLYSIS FLAG 80 (0-99); MEAN CELL HEMOGLOBIN 30.2 pg (27.9-34.1); MEAN CELL HEMOGLOBIN CONCENTR. 30.8 g/dL (32.4-36.7); MEAN CELL VOLUME 98.2 fL (81.5-99.8); MEAN PLATELET VOLUME 11.5 fL (8.7-11.7); PLATELET CLUMPS FLAG 20 (0-99); PLATELET COUNT 156 10^3/uL (150-400); RED BLOOD CELL COUNT 2.25 10^6/uL (4.40-6.38); RED CELL DISTRIBUTION WIDTH 17.7 % (11.5-15.2)
[2016-08-24 04:23] LABS: HEMOGLOBIN 6.8 g/dL (13.7-17.5)
[2016-08-24 04:35] LABS: ALANINE AMINOTRANSFERASE 41 IU/L (21-72); ALBUMIN 2.1 g/dL (3.5-5.0); ALKALINE PHOSPHATASE 617 IU/L (38-126); ANION GAP 9 mEq/L (8-16); ASPARTATE AMINOTRANSFERASE 151 IU/L (17-59); BILIRUBIN,TOTAL 1.5 mg/dL (0.1-1.4); CALCIUM 7.2 mg/dL (8.5-10.4); CARBON DIOXIDE 17 mEq/l (22-31); CHLORIDE 112 mEq/L (97-110); CREATININE 1.1 mg/dL (0.7-1.3); GLOMERULAR FILTRATION RATE > 60; GLUCOSE 82 mg/dL (70-100); POTASSIUM 3.5 mEq/L (3.5-5.2); SODIUM 138 mEq/L (134-144); TOTAL PROTEIN 4.9 g/dL (6.3-8.2)
[2016-08-24 04:50] LABS: ELLIPTOCYTES 1+; HYPOCHROMIA 1+; MACROCYTES 1+; PLATELET ESTIMATE DECREASED (ADEQ)
[2016-08-24] MEDS: ENOXAPARIN 40 MG/0.4 ML SYR SC SCH (08:30)
[2016-08-24] MEDS: CHOLECALCIFEROL VIT D3 2,000 UNITS TAB/CAP PO SCH (08:31)
[2016-08-24] MEDS: SERTRALINE HCL 50 MG TAB PO SCH (08:31)
[2016-08-24] MEDS: MULTIVITAMINS 1 EACH TAB PO SCH (08:31)
[2016-08-24] MEDS: CEFEPIME HCL 1 GM in D5W 50 ML IV SCH (08:47)
--- NOTE | 2016-08-24 08:47 | CPEKG ---
Heart Rate: 82 RR Interval: 732 P-R Interval: 130 QRSD Interval: 76 QT Interval: 380 QTC Interval: 444 P Surprise: 0 QRS Surprise: -3 T Wave Surprise: -29 EKG Severity - BORDERLINE ECG - EKG Impression: SINUS RHYTHM EKG Impression: LOW VOLTAGE THROUGHOUT EKG Impression: BORDERLINE T ABNORMALITIES, INFERIOR LEADS Electronically Signed By: Amilcar Lundberg 24-Aug-2016 09:57:52
--- NOTE | 2016-08-24 15:32 | HOSPPROG ---
Hospitalist Progress Note Assessment/Plan: 75-year-old male admitted with acute weakness and sepsis syndrome with leukocytosis elevated lactate and hypotension. He received approximately 3 L normal saline in a sepsis protocol. He has been afebrile with a leukocytosis and no. Today urine analysis reveals a possible UTI and will begin treatment. - Sepsis with hypotension leukocytosis and elevated lactate. This appears secondary to an acute UTI. Will begin Rocephin. He is now euvolemic and will diminish his IV fluids. - Colon carcinoma metastatic to the liver with necrosis of the liver Mets. This condition appears now stable. - Cholelithiasis without evidence of cholecystitis by abdominal ultrasound. - Nephrolithiasis without evidence of obstruction. he does demonstrate a UTI with pyuria and the calcification in the right renal pelvis may represent a nidus of infection and possible pyelonephritis although the patient has not been febrile. Plans Rocephin. - SPCM: Will watch calorie counts and nutritional status. - Weakness and deconditioning: PT and OT will be consulted. - Disposition: [facility]. Probable discharge to SNF for rehabilitation in 2-3 days. Subjective: No complaints of chest pain shortness of breath nausea or vomiting or dysuria. Objective: Vital Signs Temp Pulse Resp BP Pulse Ox 36.4 C 80 28 H 123/66 H 98 08/24/16 12:00 08/24/16 12:00 08/24/16 12:00 08/24/16 12:00 08/24/16 12:00 Laboratory Results 08/24/16 04:10 08/24/16 04:10 08/23/16 08/24/16 08/25/16 05:59 05:59 05:59 Intake Total 4333 Output Total 400 Balance 3933 PT 16.8 SEC (12.0-15.0) H 08/23/16 11:57 INR 1.36 (0.83-1.16) H 08/23/16 11:57 - Time Spent With Patient Time Spent with Patient: greater than 35 minutes Time Spent with Patient: Greater than 35 minutes spent on this patients care, greater than 50% of time spent counseling, educating, and coordinating care regarding the above mentioned plan. - Pending Discharge Pending Discharge Within 24 Hours: No Pending Discharge Within 48 Hours: Yes Pending Discharge Date: 08/26/16 Pending Discharge Time: 11:00 - Physical Exam Constitutional: no apparent distress, chronically ill appearing Eyes: PERRL, anicteric sclera Ears, Nose, Mouth, Throat: moist mucous membranes, hearing normal Cardiovascular: regular rate and rhythym, no murmur, rub, or gallop Respiratory: no respiratory distress, no rales or rhonchi, clear to auscultation Gastrointestinal: normoactive bowel sounds, soft, non-tender abdomen, no palpable masses Genitourinary: no bladder fullness Musculoskeletal: generalized weakness, other ( Trace to 1+ peripheral edema) Neurologic: AAOx3, CN II-XII Intact Psychiatric: interacting appropriately ICD10 Worksheet Patient Problems: Problems Problem Status Onset Cellulitis Acute Severe sepsis Acute Nosocomial pneumonia Acute
--- NOTE | 2016-08-24 15:36 | SOAPPROG ---
[facility] Progress Note Assessment/Plan: E&M for Colon Cancer * Metastatic colon cancer: last chemo (folofiri + jean-paul) was over a month ago and labs ok; further therapy on hold for infections * Probable Urosepsis: spoke with hospitalist and he is modifying abx to more specifically cover it. * Anemia: probably multifactorial with age, illnesses, chemo; no onc contra- indication to PRBC transfusion. I will check iron * Neck pain and abn bone scan ([facility]): will check PSA and plain films * Hernia: he has been off avastin for > month so would be safe to perform surgery if needed Subjective: Feeling better. Denies current neck pain but hasn't walked. Has pain in right groin from a hernia. Objective: Vital Signs Temp Pulse Resp BP Pulse Ox 36.4 C 80 28 H 123/66 H 98 08/24/16 12:00 08/24/16 12:00 08/24/16 12:00 08/24/16 12:00 08/24/16 12:00 Laboratory Results 08/24/16 04:10 08/24/16 04:10 08/23/16 08/24/16 08/25/16 05:59 05:59 05:59 Intake Total 4333 Output Total 400 Balance 3933 PT 16.8 SEC (12.0-15.0) H 08/23/16 11:57 INR 1.36 (0.83-1.16) H 08/23/16 11:57 Laboratory Tests 08/23/16 08/23/16 08/24/16 11:57 17:09 04:10 WBC 18.16 H 14.44 H Hgb 8.9 L 6.8 L Plt Count 212 156 D Ur Leukocyte Esterase 2+ H Urine WBC 50-182 H Physical Exam - Physical Exam General Appearance: no apparent distress Respiratory: crackles Cardiac/Chest: regular rate, rhythm Abdomen: soft ICD10 Worksheet Patient Problems: Problems Problem Status Onset Nosocomial pneumonia Acute Severe sepsis Acute Cellulitis Acute
[2016-08-24] MEDS: ONDANSETRON 4 MG/2 ML VIAL IVP PRN (15:48)
--- NOTE | 2016-08-24 16:10 | GCON ---
[f rep st] CONSULTATION PULMONARY/CRITICAL CARE CONSULTATION DATE OF CONSULTATION: 08/24/2016 REASON FOR CONSULTATION: Intensive care unit evaluation and management of sepsis. HISTORY: The patient is a 75-year-old gentleman with known metastatic carcinoma of the colon. He last had chemotherapy approximately 1 month ago. Around that time, he was admitted to [facility] with bilateral pneumonia. We do not have those complete records. He was discharged home on oxygen for the first time and completed his course of antibiotics there. Since then, he gradually improved, but remained weak, using a walker, with limited mobility. In the 2 days prior to this admission, he had increasing weakness and fatigue. He was seen by his oncologist and was found to be hypotensive. He was sent to the emergency department for admission. Chest x-ray and CT scan of the chest did not demonstrate recurrent pneumonia. Blood cultures are pending. Urine culture, not obtained initially on admission , subsequently came back with pyuria, suggesting a possible urinary tract infection and associated sepsis. He has been admitted to the intensive care unit. He states that with antibiotics and intravenous fluids he is feeling considerably better and stronger compared to admission. PAST MEDICAL HISTORY: Remarkable for the metastatic colon cancer. He had colonic resection about a year ago. He is followed by Dr. Hilton at [facility]. He also has a history of prostate cancer. HOME MEDICATIONS: Included Lomotil, albuterol, metoprolol, and Zoloft. SOCIAL HISTORY: The patient lives with his . He is retired from [employer]. He smoked in the very distant past and has no history of lung disease. Alcohol is negative. FAMILY HISTORY: Noncontributory; however, there is cancer in his family. REVIEW OF SYSTEMS: He denies heart or lung disease, renal disease, previous thromboembolic disease, or other issues. He does complain of loose stool/ diarrhea over the last 1 month, since his last chemotherapy. He does have chronic lower extremity edema. PHYSICAL EXAMINATION: GENERAL: Reveals an elderly gentleman, who is awake, alert, and appropriately responsive. VITAL SIGNS: Oxygen is in place at 2 L. Saturations are in the high 90s. Blood pressure is approximately 120/60, heart rate 80, with sinus rhythm on the monitor. Respiratory rate is 20. HEENT: Unremarkable for lymphadenopathy or thyromegaly. There is no obvious jugular venous distention. Mucous membranes are moist. CHEST: Reveals decreased breath sounds and excursions bilaterally with a few nonspecific scattered rales on both sides. There are no rhonchi, no wheezes, no evidence of consolidation. HEART: Regular in rate and rhythm. There is a soft systolic murmur, no gallop. ABDOMEN: Overweight, soft and minimally tender. Bowel sounds are present, but somewhat diminished. No Rendon catheter is in place. EXTREMITIES: Remarkable for 1+ edema bilaterally. There are no obvious cords. NEUROLOGIC : Nonfocal. He moves all extremities equally. He does appear somewhat globally weak. He was not ambulated. He is oriented x3. DATABASE: Chest x-ray shows hypoventilatory changes with some basilar atelectasis. Small effusions cannot be excluded. A port is in place. CT scan was done at [facility] and is not available on this computer system. By report, there were no significant infiltrates or evidence of consolidation. Laboratory: White blood cell count is 14,000, hematocrit 22, down from 29 on admission, platelets are 156,000. INR was mildly elevated at 1.36 on admission. Initial lactate was approximately 3 and came down to 2.3 an hour later, both related to admission. Sodium is 138, potassium 3.5, CO2 17, BUN 25 , with a creatinine of 1.1. These latter 2 values are both down compared to admission. Total bilirubin is 1.5 with an AST of 151 and ALT of 41. Albumin is 2.1. Urinalysis on admission showed over 100 white blood cells and was positive for leukocyte esterase. Specific gravity was greater than 1.035. ASSESSMENT: 1. Hypotension, weakness. This is likely secondary to urosepsis associated with volume depletion on admission. Urine culture is pending; however, UA indicated pyuria. There is no evidence of recurrent pneumonia or other infection. By report, the patient does have some large necrosing metastases and toxic metabolic factors associated with this necrosis may be playing a role. He is on appropriate antibiotics and intravenous fluids and has improved compared to admission. Therapies will be continued. 2. History of metastatic carcinoma of the colon. He has been seen by Oncology. 3. Hypoxemia. The patient has been on oxygen at least at night since his recent hospitalization for pneumonia. It is unclear whether he will need this going forward. 4. History of recent pneumonia, hospitalized elsewhere. He may not yet be back to baseline. 5. Gallstones and renal stone. There is no evidence of cholecystitis or infected renal calculus. However, it is difficult to exclude the latter at this time. 6. Deep venous thrombosis prophylaxis. On enoxaparin. 7. Gastrointestinal prophylaxis. None required, eating. 8. Diarrhea. He has had diarrhea/loose stools over the last 1 month. Clostridium difficile seems unlikely, but needs to be ruled out. 7. Anemia. No evidence of active bleeding. Suspect chronic and delusional. Follow. Blood if needed. PLAN AND RECOMMENDATIONS: The patient will be kept in the intensive care unit. Intravenous fluids and antibiotics will be continued. Cultures will be awaited. C difficile stool sample will be checked. Laboratory and clinical status will be followed. A stool sample for C difficile colitis will be obtained. Appropriate pain control and antiemetics will be given. Further plans and recommendations will be made based on his progress over the next 12-24 hours. /[id number]/MODL MTDD
[2016-08-24] MEDS: METOPROLOL SUCCINATE XR 50 MG TAB PO SCH (18:29)
--- NOTE | 2016-08-24 18:41 | GCON ---
[f rep st] CONSULTATION DATE OF CONSULTATION: 08/24/2016 REQUESTING PHYSICIAN: Dr. Joaquim Lai. REASON FOR REQUEST: Left inguinal hernia. HISTORY OF PRESENT ILLNESS: The patient is a 75-year-old man, history of prostate cancer. He then developed colon cancer, and had a partial colectomy, followed by chemotherapy. He was doing well, and then was found to have liver metastasis, and underwent chemotherapy, then developed skin lesions. Approximately 1 month ago, EMS was called due to worsening shortness of breath, and he was found to have pneumonia, and was treated at [facility]. At that time, he noticed pain in his left groin. He was discharged home on antibiotics. He has been having a lot of liquid stools. He then was readmitted to [facility] due to weakness and failure to thrive and question of sepsis. Today when he got up to go to the bathroom, he was complaining of more pain in his left groin. The pain does not radiate, but it is very intense. He tried to throw up. He is still having bowel movements. PAST MEDICAL HISTORY: Anemia, colon cancer, prostate cancer. PAST SURGICAL HISTORY: As above. SOCIAL HISTORY: He lives at home with his . Tobacco: He stopped smoking 50 years ago. He does not use drugs or alcohol. He is a retired executive. FAMILY HISTORY: Significant for breast cancer in a sister. REVIEW OF SYSTEMS: Positive for malaise, weakness, some shortness of breath, some coughing, abdominal pain, diarrhea. Otherwise, review of systems is negative. PHYSICAL EXAMINATION: GENERAL: Pleasant man. He is well nourished. He appears older than stated age. VITALS: 36.6, 99, 115/73, 20, 100% on 3 L. HEENT: Normocephalic. No gross hearing deficits. Mucous membranes moist. Pupils equal and round. No scleral icterus. LUNGS: No increased work of breathing. CARDIAC: Regular rate. ABDOMEN: Bowel sounds are present. He is soft and mildly tender in the left lower quadrant. : I did not feel a hernia while palpating through his scrotum. However, he does have a palpable mass in his left groin near the inguinal ligament that is tender to the touch. SKIN: Multiple skin lesions. MUSCULOSKELETAL: Weak, requires assistance for standing. NEURO: Grossly intact. PSYCH: Mood and affect normal. Per , a bit confused. LABORATORY WORK: Results reviewed. His laboratory work reveals a white count of 14.4, H and H 6.8 and 22, and platelets of 156. His INR is 1.36, creatinine 1.1. IMPRESSION/PLAN: The patient is a 75-year-old with likely an incarcerated hernia. I have ordered a stat ultrasound to confirm this, as he is not an ideal surgical candidate, and physical exam was difficult. I discussed that if he does need to go to the operating room, we would do an open procedure with possible mesh. We also discussed the risks and benefits including, but not limited to, stroke, heart attack, , blood clots, infection, bleeding, damage to surrounding structures such as the bowel and the testicle were explained. I will await the results. Ultrasound did not show hernia CT scan obtained which showed ascites, some thickened loops of bowel. Bilateral fat containing hernias with some fluid in the left inguinal canal. Patient is feeling better. Will observe /[id number]/MODL MTDD
[2016-08-24] MEDS ORDERED: IOPAMIDOL (ISOVUE-300) 100 ML BTL ONE (19:42)
[2016-08-25 05:01] LABS: ABSOLUTE IMMATURE GRANULOCYTES 0.19 10^3/uL (0.00-0.10); ADD DIFF? NO; ADD MORPH? NO; ADD SCAN? NO; ATYPICAL LYMPHOCYTE FLAG 0 (0-99); FRAGMENT RBC FLAG 20 (0-99); HEMATOCRIT 28.6 % (40.0-51.0); HEMOGLOBIN 9.1 g/dL (13.7-17.5); LEFT SHIFT FLG 10 (0-99); LIPEMIA HEMOLYSIS FLAG 80 (0-99); MEAN CELL HEMOGLOBIN 30.2 pg (27.9-34.1); MEAN CELL HEMOGLOBIN CONCENTR. 31.8 g/dL (32.4-36.7); MEAN PLATELET VOLUME 11.8 fL (8.7-11.7); PLATELET CLUMPS FLAG 0 (0-99); PLATELET COUNT 156 10^3/uL (150-400); RED BLOOD CELL COUNT 3.01 10^6/uL (4.40-6.38); RED CELL DISTRIBUTION WIDTH 17.5 % (11.5-15.2)
[2016-08-25 05:11] LABS: ALANINE AMINOTRANSFERASE 44 IU/L (21-72); ALBUMIN 2.1 g/dL (3.5-5.0); ALKALINE PHOSPHATASE 813 IU/L (38-126); ANION GAP 11 mEq/L (8-16); ASPARTATE AMINOTRANSFERASE 140 IU/L (17-59); CALCIUM 8.1 mg/dL (8.5-10.4); CARBON DIOXIDE 16 mEq/l (22-31); CHLORIDE 112 mEq/L (97-110); CREATININE 1.1 mg/dL (0.7-1.3); GLOMERULAR FILTRATION RATE > 60; GLUCOSE 92 mg/dL (70-100); POTASSIUM 3.7 mEq/L (3.5-5.2); SODIUM 139 mEq/L (134-144); TOTAL PROTEIN 5.3 g/dL (6.3-8.2)
[2016-08-25 05:20] LABS: % SATURATION 14 % (20-55); TOTAL IRON BINDING CAPACITY 124 ug/dL (260-490)
[2016-08-25] MEDS: ENOXAPARIN 40 MG/0.4 ML SYR SC SCH (08:28)
[2016-08-25] MEDS: SERTRALINE HCL 50 MG TAB PO SCH (10:17)
[2016-08-25] MEDS: CHOLECALCIFEROL VIT D3 2,000 UNITS TAB/CAP PO SCH (10:17)
[2016-08-25] MEDS: ERTAPENEM 1 GM in NS 100 ML IV SCH (10:17)
[2016-08-25] MEDS: MULTIVITAMINS 1 EACH TAB PO SCH (10:17)
--- NOTE | 2016-08-25 11:36 | PDINTPN ---
Executive Chairman Progress Note Assessment/Plan: Assessment: Sepsis: Improving. A bowel source likely emerging. On Invanz. Urinary tract still possible but cultures negative. Inguinal hernia: Surgery following. GI to see. May need colonoscopy. No evidence of incarceration currently. Query sliding and responsible for positional pain when bowel goes into hernia. NPO. On IVF. Metastatic colon cancer. Responding to chemotherapy. Liver metastases necrotic. Diarrhea: Present for number of months. C diff pending but doubt this will be positive. Anemia: Multifactorial - secondary to malignancy, chemotherapy, decreased iron , and chronic disease. Status post 2 units 08/24. Hematocrit 28 today. Recent pneumonia: No issues identified. On bronchodilator therapy and O2. Leukocytosis: White blood cell up this morning. Probably related to #2. DVT prophylaxis: On enoxaparin. GI prophylaxis: Now npo. Will add famotidine. Metabolic: Hypernatremia improved Plan: Continue care in the intensive care unit. Continue intravenous fluids and ertapenem. Continue bronchopulmonary therapies. Follow clinical examination of abdomen. Follow laboratory. Gastroenterology to evaluate patient today. Appreciate surgical input. 30 minutes of critical care time spent directly with the patient. Discussed with the hospitalist, nursing, surgery, and the ICU multi disciplinary team. Subjective: Doing okay, but feels weak. More abdominal distension today, some nausea this morning without vomiting. Not hungry. Denies left lower quadrant pain currently. Objective: Vital Signs Temp Pulse Resp BP Pulse Ox 36.6 C 93 32 H 139/65 H 98 08/25/16 08:00 08/25/16 08:00 08/25/16 08:00 08/25/16 08:00 08/25/16 08:00 Microbiology 08/23/16 17:09 Urine Culture - Final Urine,Clean Catch Two [place] Types Laboratory Results 08/25/16 04:40 08/25/16 04:40 08/24/16 08/25/16 08/26/16 05:59 05:59 05:59 Intake Total 4333 980 Output Total 400 3 Balance 3933 977 PT 16.8 SEC (12.0-15.0) H 08/23/16 11:57 INR 1.36 (0.83-1.16) H 08/23/16 11:57 Laboratory Tests 08/23/16 08/25/16 08/25/16 11:57 04:40 09:45 VBG Lactic Acid 0.9 D Calcium 8.1 L Iron 17.0 L TIBC 124 L Iron Saturation 14 L Ferritin 686.0 H Total Bilirubin 2.0 H AST 140 H ALT 44 Albumin 2.1 L Prostate Specific Ag 1.[address] abdomen. Bibasilar effusions with some atelectasis. Left inguinal hernia present with some omental fat within it, no bowel. Minimal ascites. 1 area of thickened bowel, query colitis/tiflitis. Physical Exam - Physical Exam General Appearance: alert, no apparent distress EENT: other (On 2 L. Dry mucous membranes) Neck: normal inspection (No obvious JVD) Respiratory: lungs clear (Anteriorly), decreased breath sounds (At bases), rales (Few rales at bases) Cardiac/Chest: regular rate, rhythm (Sinus rhythm on the monitor with PACs and some ectopy) Abdomen: non-tender, distended, No normal bowel sounds (Very reduced), No soft Male Genitalia: other (No Rendon catheter, using urinal) Skin: normal color, warm/dry Extremities: pedal edema (Trace +) Neuro/Psych: no motor/sensory deficits, No cognition abnormalities ICD10 Worksheet Patient Problems: Problems Problem Status Onset Cellulitis Acute Severe sepsis Acute Nosocomial pneumonia Acute
[2016-08-25] MEDS: FAMOTIDINE 20 MG/NACL 50 ML IV SCH ×2 (12:09→20:09)
--- NOTE | 2016-08-25 14:27 | GCON ---
[f rep st] CONSULTATION INPATIENT CONSULTATION NOTE REFERRING PHYSICIAN: Dr. Lai REASON FOR CONSULTATION: Abnormal imaging of the GI tract. CHIEF COMPLAINT: Fatigue and weakness. HISTORY OF PRESENT ILLNESS: I was asked by Dr. Lai to evaluate the patient for abnormal imaging of his GI tract. The patient is a pleasant 75-year-old male, who was admitted to the hospital on 08/23/2016 for the evaluation of fatigue and weakness. He has an underlying history of metastatic colonic carcinoma, for which he is undergoing chemotherapy. He was recently admitted to the hospital at [facility] for the diagnosis of pneumonia. He was discharged home. He began to have increasing dyspnea and fatigue and so presents to the emergency room concerned that he may have had a recurrence of pneumonia. He also admits to very poor appetite with decreased p.o. intake. He does not admit to any cough or chest pain. He has had a history of partial colonic resection and has undergone chemotherapy for metastatic colon cancer. He has metastases to his liver. He underwent CAT scan imaging on the day of admission through the [facility]. He had some hypotension symptoms at that time and was sent to the emergency room for evaluation. He was admitted to the hospital for ongoing workup of fatigue, weakness, hypotension. PAST MEDICAL HISTORY: Includes prostate cancer, colon cancer. He reports no history of asthma, high blood pressure, diabetes, or renal impairment. SOCIAL HISTORY: Lives at home. He is a retired executive. He has a past smoking history but quit tobacco 50 years ago. He does not use drugs or drink alcohol. FAMILY HISTORY: Positive for breast cancer but negative for colon cancer. REVIEW OF SYSTEMS: A complete 10-point review of systems was undergone with the patient and is negative except for those details described in the History of Present Illness. PHYSICAL EXAMINATION: GENERAL: This is a well-developed, frail male, in no apparent distress. HEENT: His pupils are equal, round, and reactive to light and accommodation. His sclerae are nonicteric. His oropharynx is clear. NECK : Supple without lymphadenopathy. HEART: Regular without murmur. ABDOMEN: Soft, nontender, with normoactive bowel sounds. EXTREMITIES: Free of cyanosis , clubbing, and edema. NEUROLOGIC: Grossly nonfocal. JOINTS: Show no arthritis. PSYCH: Reveals normal mood and affect. LABORATORY DATA: Shows a white count of 19.9, hemoglobin of 9.8, hematocrit of 28.6, platelet count of 156. Sodium of 139, potassium of 3.7, chloride of 112, bicarb of 16, BUN of 22, creatinine 1.1. AST of 140, ALT of 44, ferritin of 686 , alkaline phosphatase of 813, total bilirubin of 2.0. Urinalysis revealed 50- 182 white cells with leukocyte esterase positive. Hyaline casts were noted, as well. IMAGING DATA: CT scan of the abdomen and pelvis done on 08/24/2016 revealed bilateral pleural effusions with compressive atelectasis and areas of ground- glass attenuation, mild cardiomegaly, moderate volume ascites with mild anasarca , diffuse hepatic and osseous metastatic disease, herniation of omental fat into the inguinal canal, wall thickening associated with some loops of colon and small bowel. IMPRESSION AND RECOMMENDATIONS: The patient has been admitted to the hospital for the evaluation of weakness, hypotension, and fatigue. My review of his workup is most suggestive of urosepsis. He has an abnormal urinalysis with positive leukocyte esterase. Urine cultures are currently pending. His abnormal liver tests are notable; they are likely related to his metastatic liver disease. The discoveries made at CT scan suggesting possible colonic and/or small bowel inflammation are noted. They may be related to volume overload, anasarca, etc. He does admit to intermittent symptoms of diarrhea; therefore, a stool infectious workup as indicated. At this time, I would not, however, recommend any more invasive evaluation of those findings. They are likely to be incidental. I will sign off the patient's care. Should there be any changes in his clinical status, we could consider a revisit. At this time, however, I do not think there are any GI evaluations or critical workup that are necessary. I am hopeful that he will improve with antibiotics for urosepsis. /[id number]/MODL MTDD
[2016-08-25] MEDS: ONDANSETRON 4 MG/2 ML VIAL IVP PRN (15:23)
--- NOTE | 2016-08-25 16:19 | SOAPPROG ---
SOAP Progress Note Assessment/Plan: E&M for Colon Cancer * Metastatic colon cancer: last chemo (folofiri + jean-paul) was over a month ago and labs ok; further therapy on hold for infections * Probable Urosepsis: on abx to more specifically cover it. * * Colitis + hernia: work up in process. I spoke with Dr. Smith who is more concerned about the bowel changes. If needs surgery, he has been off avastin nearly 6 weeks. * Anemia: probably multifactorial with age, illnesses, chemo; responded well to PRBC transfusion. Iron levels consistent with anemia of chronic disease. * Neck pain and abn bone scan ([facility]): PSA only 1 and plain films show no new problems Subjective: Still having pain in low abd. Objective: Vital Signs Temp Pulse Resp BP Pulse Ox 36.8 C 96 32 H 137/68 H 100 08/25/16 12:00 08/25/16 12:00 08/25/16 12:00 08/25/16 12:00 08/25/16 12:00 Microbiology 08/25/16 12:15 Gastrointestinal Tract Panel (PCR) - Final Stool No Organism Detected 08/23/16 17:09 Urine Culture - Final Urine,Clean Catch Two [place] Types Laboratory Results 08/25/16 04:40 08/25/16 04:40 08/24/16 08/25/16 08/26/16 05:59 05:59 05:59 Intake Total 4333 980 Output Total 400 3 Balance 3933 977 PT 16.8 SEC (12.0-15.0) H 08/23/16 11:57 INR 1.36 (0.83-1.16) H 08/23/16 11:57 Cervical Spine, Two Views History: Neck pain near skull while standing, history of colon cancer Comparison: November 06, 2011 Findings: Cervical junction and upper cervical spine above the level of C4 are normal. The posterior ring of C1 remains mildly anteriorly placed, and stable since 2011, compared to the remainder of the posterior interlaminar line. Degenerative disk disease between C4 and C7 remains. Along with straightening of the normal cervical curvature. No lytic or sclerotic lesions to suggest bony metastatic disease. Impression: No source for upper neck pain identified. Dictated By: Sacha Brown MD Contrast Enhanced CT Scan of the Abdomen and Pelvis Impression: 1. Bilateral pleural effusions with bibasilar compressive atelectasis and lower lung zone areas of groundglass attenuation and peribronchial thickening. 2. Mild cardiomegaly. 3. Moderate-volume ascites and mild anasarca. 4. Diffuse hepatic and osseous metastatic disease. 5. Herniation of omental fat into the inguinal canals with some ascites into the left inguinal canal but no bowel herniation. 6. Wall thickening associated with some loops of colon and small bowel which may be secondary to hypoproteinemia and ascites, although an early underlying enterocolitis cannot be excluded. There is no evidence of a mechanical bowel obstruction. Dictated By: Joaquim Ty MD Laboratory Tests 08/24/16 08/25/16 08/25/16 04:10 04:40 04:40 WBC 14.44 H 19.95 H Hgb 6.8 L 9.1 L Plt Count 156 D 156 Carbon Dioxide 16 L Iron Saturation 14 L Ferritin 686.0 H Prostate Specific Ag 1.09 Physical Exam - Physical Exam General Appearance: other (being helped into bed) ICD10 Worksheet Patient Problems: Problems Problem Status Onset Nosocomial pneumonia Acute Severe sepsis Acute Cellulitis Acute
[2016-08-25] MEDS ORDERED: HYDROmorphONE/DILAUDID 1 MG/ML SYR IVP PRN (16:47)
--- NOTE | 2016-08-25 16:52 | HOSPPROG ---
Hospitalist Progress Note Assessment/Plan: 75-year-old male admitted with acute weakness and sepsis syndrome with leukocytosis elevated lactate and hypotension. - Sepsis with hypotension leukocytosis and elevated lactate. This appears secondary to an acute UTI. Currently on Invanz. He is now euvolemic and will diminish his IV fluids. - Colon carcinoma metastatic to the liver with necrosis of the liver Mets. This condition appears now stable. - left lower quadrant abdominal pain with possible left inguinal hernia: Patient is at a CT scan and consult by surgery and GI. CT scan shows omental fat within inguinal hernia and possible antral colitis. GI does not feel that the enterocolitis is significant or severe. Patient does have intermittent diarrhea And C difficile has been ordered. Most notably the left lower quadrant pain becomes much more severe when he stands. Thus he may have a sliding inguinal hernia that strangulate fat or bowel when he is standing. I have consulted Dr. Smith again to evaluate this once again. - Cholelithiasis without evidence of cholecystitis by abdominal ultrasound. - Nephrolithiasis without evidence of obstruction. he does demonstrate a UTI with pyuria and the calcification in the right renal pelvis may represent a nidus of infection and possible pyelonephritis although the patient has not been febrile. Plans Rocephin. - SPCM: Will watch calorie counts and nutritional status. - Weakness and deconditioning: PT and OT will be consulted. - Disposition: Plan here depends on a final diagnosis of his left lower quadrant pain. Differential here is a dynamic hernia, urosepsis, or enterocolitis. Subjective: No complaints while lying down. While standing the gentleman will have left lower quadrant pain. He has had 1 episode of loose stool but no fever chills Objective: Vital Signs Temp Pulse Resp BP Pulse Ox 36.8 C 96 32 H 137/68 H 100 08/25/16 12:00 08/25/16 12:00 08/25/16 12:00 08/25/16 12:00 08/25/16 12:00 Microbiology 08/25/16 12:15 Gastrointestinal Tract Panel (PCR) - Final Stool No Organism Detected 08/23/16 17:09 Urine Culture - Final Urine,Clean Catch Two [place] Types Laboratory Results 08/25/16 04:40 08/25/16 04:40 08/24/16 08/25/16 08/26/16 05:59 05:59 05:59 Intake Total 4333 980 Output Total 400 3 Balance 3933 977 PT 16.8 SEC (12.0-15.0) H 08/23/16 11:57 INR 1.36 (0.83-1.16) H 08/23/16 11:57 - Time Spent With Patient Time Spent with Patient: greater than 35 minutes Time Spent with Patient: Greater than 35 minutes spent on this patients care, greater than 50% of time spent counseling, educating, and coordinating care regarding the above mentioned plan. - Pending Discharge Pending Discharge Within 24 Hours: No Pending Discharge Within 48 Hours: No - Physical Exam Constitutional: no apparent distress Eyes: PERRL, anicteric sclera Ears, Nose, Mouth, Throat: moist mucous membranes, hearing normal Cardiovascular: regular rate and rhythym, no murmur, rub, or gallop Respiratory: no respiratory distress, no rales or rhonchi, inspiratory crackles Gastrointestinal: normoactive bowel sounds, other ( hernia noted in the left inguinal region without tenderness while lying down. This area will become quite tender and painful if the gentleman standing for some period of time) Genitourinary: no bladder fullness Skin: warm Musculoskeletal: generalized weakness Neurologic: AAOx3, CN II-XII Intact Psychiatric: interacting appropriately ICD10 Worksheet Patient Problems: Problems Problem Status Onset Cellulitis Acute Severe sepsis Acute Nosocomial pneumonia Acute
--- NOTE | 2016-08-25 17:51 | SOAPPROG ---
SOAP Progress Note Assessment/Plan: Assessment: 75 year old with prostate cancer and colon cancer. Now with bone and liver mets. Recently hospitalized for pneumonia about 3-4 weeks ago. Now admitted with sepsis. Had LLQ pain last evening. US with no evidence of hernia. CT scan with fat containing hernia and some fluid. Has ascites, some thickened bowel and liver and bone mets. When upright pain increases. I reviewed the CT scan personally and it is possible that fluid is going into the canal and causing pressure. I recommend paracentesis. May need evin drain vs surgery. S: Feeling well when supine O: Lying in bed Plan: 08/25/16 17:49 08/25/16 17:52 Objective: Vital Signs Temp Pulse Resp BP Pulse Ox 36.9 C 91 23 H 132/79 H 99 08/25/16 16:00 08/25/16 16:00 08/25/16 16:00 08/25/16 16:00 08/25/16 16:00 Microbiology 08/25/16 12:15 Gastrointestinal Tract Panel (PCR) - Final Stool No Organism Detected 08/23/16 17:09 Urine Culture - Final Urine,Clean Catch Two [place] Types Laboratory Results 08/25/16 04:40 08/25/16 04:40 08/24/16 08/25/16 08/26/16 05:59 05:59 05:59 Intake Total 4333 980 Output Total 400 3 Balance 3933 977 PT 16.8 SEC (12.0-15.0) H 08/23/16 11:57 INR 1.36 (0.83-1.16) H 08/23/16 11:57 Physical Exam - Physical Exam General Appearance: WD/WN, alert, no apparent distress, other (lying in bed, older than stated age) EENT: PERRL/EOMI, pale conjunctiva (R), pale conjunctiva (L), No scleral icterus (R), No scleral icterus (L) Respiratory: lungs clear, normal breath sounds Cardiac/Chest: other (regular rate) Abdomen: non-tender, soft, distended ICD10 Worksheet Patient Problems: Problems Problem Status Onset Nosocomial pneumonia Acute Severe sepsis Acute Cellulitis Acute
[2016-08-25] MEDS: METOPROLOL SUCCINATE XR 50 MG TAB PO SCH (20:07)
[2016-08-26 04:18] LABS: ABSOLUTE IMMATURE GRANULOCYTES 0.21 10^3/uL (0.00-0.10); ADD DIFF? NO; ADD MORPH? NO; ADD SCAN? NO; ATYPICAL LYMPHOCYTE FLAG 0 (0-99); FRAGMENT RBC FLAG 20 (0-99); HEMATOCRIT 28.9 % (40.0-51.0); HEMOGLOBIN 9.3 g/dL (13.7-17.5); LEFT SHIFT FLG 10 (0-99); LIPEMIA HEMOLYSIS FLAG 80 (0-99); MEAN CELL HEMOGLOBIN 30.3 pg (27.9-34.1); MEAN CELL HEMOGLOBIN CONCENTR. 32.2 g/dL (32.4-36.7); MEAN CELL VOLUME 94.1 fL (81.5-99.8); MEAN PLATELET VOLUME 12.1 fL (8.7-11.7); PLATELET CLUMPS FLAG 20 (0-99); PLATELET COUNT 156 10^3/uL (150-400); RED BLOOD CELL COUNT 3.07 10^6/uL (4.40-6.38); RED CELL DISTRIBUTION WIDTH 18.2 % (11.5-15.2)
[2016-08-26 04:27] LABS: ALANINE AMINOTRANSFERASE 43 IU/L (21-72); ALBUMIN 2.3 g/dL (3.5-5.0); ALKALINE PHOSPHATASE 894 IU/L (38-126); ANION GAP 12 mEq/L (8-16); ASPARTATE AMINOTRANSFERASE 139 IU/L (17-59); BILIRUBIN,TOTAL 2.6 mg/dL (0.1-1.4); CALCIUM 8.1 mg/dL (8.5-10.4); CARBON DIOXIDE 16 mEq/l (22-31); CHLORIDE 116 mEq/L (97-110); CREATININE 0.9 mg/dL (0.7-1.3); GLOMERULAR FILTRATION RATE > 60; GLUCOSE 105 mg/dL (70-100); POTASSIUM 3.6 mEq/L (3.5-5.2); SODIUM 144 mEq/L (134-144); TOTAL PROTEIN 5.5 g/dL (6.3-8.2)
[2016-08-26 04:34] LABS: BILIRUBIN-CONJUGATED 2.1 mg/dL (0.0-0.5); BILIRUBIN-UNCONJUGATED 0.5 mg/dL (0.0-1.1)
[2016-08-26] MEDS: ENOXAPARIN 40 MG/0.4 ML SYR SC SCH ×2 (09:31→14:36)
[2016-08-26] MEDS: FAMOTIDINE 20 MG/NACL 50 ML IV SCH ×2 (09:31→20:42)
[2016-08-26] MEDS: ERTAPENEM 1 GM in NS 100 ML IV SCH (09:31)
[2016-08-26] MEDS ORDERED: ADENOSINE 6 MG/2 ML VIAL IVP ONE (10:36)
--- NOTE | 2016-08-26 10:59 | CPEKG ---
Heart Rate: 93 RR Interval: 645 QRSD Interval: 76 QT Interval: 356 QTC Interval: 443 QRS [place]: 3 T Wave [place]: 18 EKG Severity - ABNORMAL ECG - EKG Impression: ATRIAL FIBRILLATION EKG Impression: LOW VOLTAGE IN FRONTAL LEADS EKG Impression: BORDERLINE R WAVE PROGRESSION, ANTERIOR LEADS Electronically Signed By: Ubaldo Méndez 28-Aug-2016 08:11:15
--- NOTE | 2016-08-26 14:15 | HOSPPROG ---
Hospitalist Progress Note Assessment/Plan: 75 yo M with hx of metastatic colon cancer as well as recent hospitalization for pna presenting with hypotension and ? sepsis # ? sepsis: on arrival patient noted to be hypotensive with elevated lactate and leukocytosis. Source unclear but has largely improved on empiric abx. Cultures with ngtd including urine cultures. CXR now c/w pna. ? of GI source though GI pathogen panel negative and abd CT showing possible early enterocolitis but otherwise unremarkable. Will monitor off of abx for now. # hypotension: with associated rayne and mildly elevated lactate on arrival, all improved with IVF. Unclear if sepsis contributed versus all volume related. Resolved. # svt: today with run of svt with rate in 160s, post adenosine appeared c/w a fib, will continue to monitor on tele and obtain serial trops. Had echo several days ago that was unremarkable. # pyuria: has been on several different abx since admission: 1 dose vanc and zosyn, cefepime x 2 days and now ertapenem. Urine cultures with low colony counts of 2 different organisms. # metastatic rectal/colon cancer: last chemo approximately 1 month ago, diffuse hepatic and osseus mets noted # left inguinal hernia: it is noted to be painful especially when standing, gen surg involved and recommending paracentesis versus evin drain vs surgery. CT does not show any incarcerated bowel but ? if there is ascites tracking into area when standing # ascites/anasarca: with diffuse hepatic mets as well as diastolic dysfunction # malnutrition: calorie counts, dietary involved # anemia: stable monitoring # nephrolithiasis/cholelithiasis: no acute issues # bilateral pleural effusions/infiltrates: without significant respiratory complaints, o2 needs remain down # IP Patient new to my care. Care plan reviewed with DR. Keith and multidisciplinary care team on rounds. Subjective: no significant overnight events, patient notes his groin still hurts when he stands Objective: Vital Signs Temp Pulse Resp BP Pulse Ox 36.4 C 88 26 H 144/76 H 99 08/26/16 07:51 08/26/16 07:51 08/26/16 07:51 08/26/16 07:51 08/26/16 07:51 Microbiology 08/25/16 12:15 Gastrointestinal Tract Panel (PCR) - Final Stool No Organism Detected 08/23/16 17:09 Urine Culture - Final Urine,Clean Catch Two [place] Types Laboratory Results 08/26/16 04:00 08/26/16 04:00 08/25/16 08/26/16 08/27/16 05:59 05:59 05:59 Intake Total 980 1575 Output Total 3 Balance 977 1575 PT 16.8 SEC (12.0-15.0) H 08/23/16 11:57 INR 1.36 (0.83-1.16) H 08/23/16 11:57 awake alert chronically ill appearing anicteric op clear poor dentition rrr no mrg cta with dec bs at bases soft distended nt ble edema warm dry well perfused oriented appropriate - Time Spent With Patient Time Spent with Patient: greater than 35 minutes Time Spent with Patient: Greater than 35 minutes spent on this patients care, greater than 50% of time spent counseling, educating, and coordinating care regarding the above mentioned plan. ICD10 Worksheet Patient Problems: Problems Problem Status Onset Cellulitis Acute Severe sepsis Acute Nosocomial pneumonia Acute
[2016-08-26] MEDS: CHOLECALCIFEROL VIT D3 2,000 UNITS TAB/CAP PO SCH (14:32)
[2016-08-26] MEDS: MULTIVITAMINS 1 EACH TAB PO SCH (14:33)
[2016-08-26] MEDS: SERTRALINE HCL 50 MG TAB PO SCH (14:36)
--- NOTE | 2016-08-26 16:35 | SOAPPROG ---
SOAP Progress Note Assessment/Plan: Assessment: STABLE TODAY/ MAY NEED LIH REPAIR Plan:RECHECK IN AM 08/26/16 16:34 Objective: Vital Signs Temp Pulse Resp BP Pulse Ox 36.5 C 79 32 H 145/82 H 98 08/26/16 16:00 08/26/16 16:00 08/26/16 16:00 08/26/16 16:00 08/26/16 16:00 Microbiology 08/25/16 12:15 Gastrointestinal Tract Panel (PCR) - Final Stool No Organism Detected 08/23/16 17:09 Urine Culture - Final Urine,Clean Catch Two [place] Types Laboratory Results 08/26/16 04:00 08/26/16 04:00 08/25/16 08/26/16 08/27/16 05:59 05:59 05:59 Intake Total 980 1575 Output Total 3 Balance 977 1575 PT 16.8 SEC (12.0-15.0) H 08/23/16 11:57 INR 1.36 (0.83-1.16) H 08/23/16 11:57 ICD10 Worksheet Patient Problems: Problems Problem Status Onset Nosocomial pneumonia Acute Severe sepsis Acute Cellulitis Acute
--- NOTE | 2016-08-26 17:30 | GHP ---
[f rep st] HISTORY AND PHYSICAL DATE OF ADMISSION: 08/23/2016 Hem/Onc progress note family meeting. DIAGNOSIS: Metastatic colon cancer with liver metastases. Admission for abdominal pain and failure to thrive and new onset of ascites. This patient was brought into the hospital because he is very weak and debilitated. CAT scan done i n the office and here in the hospital show that he has significant involvement of the liver with gregory er metastases with ascites present. I suspect the ascites is the cause of the abdominal pain due to abdominal carcinomatosis. The management at this point was discussed with the patient and his . Sidra is his . The patient has had colon cancer initially diagnosed stage IIIc last week, J 2015, and the patient had adjuvant chemotherapy for about 3 months with FOLFOX. He developed significant liver metastases in April of 2016. He had a trial of chemotherapy with FOLFIRI but did poorly. 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 More recently he is failing to thrive. Losing weight. Nauseated. Has abdominal fullness and generalized weakness. He presents in this weakened state to the hospital. CAT scans again showed metastatic disease as well as to liver as well as ascites. What we discussed was setting his goals, talked about prognosi s, and reviewed his options. The prognosis was estimated to be measured in weeks to a few months. He is accepting and understands that the value of additional chemotherapy is felt to be minimal and actually probably detrimental. We talked about do not resuscitate status, and we placed that on the chart, and they are in agreement with that plan. We talked about his goals for the next period of time, and that is unresolved, but of course, he wou ld rather be at home than in a halfway home. His , Sidra, though is the sole caregiver , and she is not able to pick him up if he falls, and he obviously is a big fall risk. She is uncle ar what her choices are, but we reviewed the various options including home hospice with private dut y nursing or help at home. We talked about senior living with self-pay with hospice in the nursing h ome, and we talked about inpatient hospices, although that is not a typical option here in [place], but there may be some options where he lives in [place]. They are in agreement to meet with [facility] who can review these various options with him in detail. At this point, he looks relatively comfortable, and I agreed to follow up with them tomorrow. I spent 1 hour and 15 minutes with the patient and his . /[id number]/[email or web address]
[2016-08-26] MEDS: METOPROLOL SUCCINATE XR 50 MG TAB PO SCH (18:31)
[2016-08-26] MEDS: NS 1,000 ML IV SCH (20:42)
[2016-08-27 05:21] LABS: ALANINE AMINOTRANSFERASE 48 IU/L (21-72); ALBUMIN 2.1 g/dL (3.5-5.0); ALKALINE PHOSPHATASE 921 IU/L (38-126); ANION GAP 10 mEq/L (8-16); ASPARTATE AMINOTRANSFERASE 154 IU/L (17-59); BILIRUBIN,TOTAL 3.4 mg/dL (0.1-1.4); CALCIUM 8.3 mg/dL (8.5-10.4); CARBON DIOXIDE 17 mEq/l (22-31); CHLORIDE 116 mEq/L (97-110); CREATININE 0.9 mg/dL (0.7-1.3); GLOMERULAR FILTRATION RATE > 60; GLUCOSE 97 mg/dL (70-100); POTASSIUM 3.7 mEq/L (3.5-5.2); SODIUM 143 mEq/L (134-144); TOTAL PROTEIN 5.6 g/dL (6.3-8.2)
[2016-08-27 05:28] LABS: BILIRUBIN-CONJUGATED 2.9 mg/dL (0.0-0.5); BILIRUBIN-UNCONJUGATED 0.5 mg/dL (0.0-1.1)
[2016-08-27 06:02] LABS: ABSOLUTE IMMATURE GRANULOCYTES 0.21 10^3/uL (0.00-0.10); ADD DIFF? NO; ADD MORPH? NO; ADD SCAN? NO; ATYPICAL LYMPHOCYTE FLAG 10 (0-99); FRAGMENT RBC FLAG 20 (0-99); HEMATOCRIT 30.2 % (40.0-51.0); HEMOGLOBIN 9.5 g/dL (13.7-17.5); LEFT SHIFT FLG 20 (0-99); LIPEMIA HEMOLYSIS FLAG 80 (0-99); MEAN CELL HEMOGLOBIN 29.9 pg (27.9-34.1); MEAN CELL HEMOGLOBIN CONCENTR. 31.5 g/dL (32.4-36.7); MEAN PLATELET VOLUME 12.1 fL (8.7-11.7); PLATELET CLUMPS FLAG 0 (0-99); PLATELET COUNT 141 10^3/uL (150-400); RED BLOOD CELL COUNT 3.18 10^6/uL (4.40-6.38); RED CELL DISTRIBUTION WIDTH 18.2 % (11.5-15.2)
[2016-08-27] MEDS ORDERED: LIDOCAINE 1% 300 MG/30 ML SDV ONE (08:46)
[2016-08-27] MEDS: FAMOTIDINE 20 MG/NACL 50 ML IV SCH ×2 (10:07→21:59)
[2016-08-27] MEDS: MULTIVITAMINS 1 EACH TAB PO SCH (10:08)
[2016-08-27] MEDS: SERTRALINE HCL 50 MG TAB PO SCH (10:08)
[2016-08-27] MEDS: ENOXAPARIN 40 MG/0.4 ML SYR SC SCH (10:08)
[2016-08-27] MEDS: CHOLECALCIFEROL VIT D3 2,000 UNITS TAB/CAP PO SCH (10:08)
--- NOTE | 2016-08-27 11:29 | SOAPPROG ---
IMMANUEL Progress Note Assessment/Plan: Assessment: STABLE TODAY/ MAY NEED LIH REPAIR Plan:RECHECK IN AM 08/26/16 16:34 08/27/16 11:26 LESS PAIN TODAY/AFEBRILE/SIGNIFICANT ASCITES, PARACENTESIS PENDING/NO TRUE EVIDENCE OF LEFT INGUINAL HERNIA ON EXAM TODAY CT SCAN REVIEWED AND NO EVIDENCE OF A TRUE HERNIA SEEN ON THE CT SCAN/WILL RE- EVALUATE AFTER PARACENTESIS Objective: Vital Signs Temp Pulse Resp BP Pulse Ox 36.7 C 74 24 H 131/70 H 100 08/27/16 07:22 08/27/16 07:22 08/27/16 07:22 08/27/16 07:22 08/27/16 07:22 Laboratory Results 08/27/16 05:50 08/27/16 04:40 08/26/16 08/27/16 08/28/16 05:59 05:59 05:59 Intake Total 1575 1910 Balance 1575 1910 PT 16.8 SEC (12.0-15.0) H 08/23/16 11:57 INR 1.36 (0.83-1.16) H 08/23/16 11:57 ICD10 Worksheet Patient Problems: Problems Problem Status Onset Nosocomial pneumonia Acute Severe sepsis Acute Cellulitis Acute
--- NOTE | 2016-08-27 12:29 | SOAPPROG ---
SOAP Progress Note Assessment/Plan: Assessment: E&M for Colon Cancer * Metastatic colon cancer: last chemo (folofiri + jean-paul) was over a month ago and labs ok; further therapy on hold for infections. He has ascites and they are having it taped today. * [facility]: arrangements have not been arranged. Plan: 08/27/16 12:29 08/27/16 12:48 Subjective: 75 yo M with advanced metastatic colon cancer. He has ascites and painful liver mets Objective: Vital Signs Temp Pulse Resp BP Pulse Ox 36.7 C 74 24 H 131/70 H 100 08/27/16 07:22 08/27/16 07:22 08/27/16 07:22 08/27/16 07:22 08/27/16 07:22 Laboratory Results 08/27/16 05:50 08/27/16 04:40 08/26/16 08/27/16 08/28/16 05:59 05:59 05:59 Intake Total 1575 1910 Balance 1575 1910 PT 16.8 SEC (12.0-15.0) H 08/23/16 11:57 INR 1.36 (0.83-1.16) H 08/23/16 11:57 Tense abdomen - Time Spent With Patient Time Spent With Patient: 25 min ICD10 Worksheet Patient Problems: Problems Problem Status Onset Nosocomial pneumonia Acute Severe sepsis Acute Cellulitis Acute
--- NOTE | 2016-08-27 12:36 | HOSPPROG ---
Hospitalist Progress Note Assessment/Plan: 75 yo M with hx of metastatic colon cancer as well as recent hospitalization for pna presenting with hypotension and ? sepsis # ? sepsis: on arrival patient noted to be hypotensive with elevated lactate and leukocytosis. Source unclear but has largely improved on empiric abx. Cultures with ngtd including urine cultures. CXR now c/w pna. ? of GI source though GI pathogen panel negative and abd CT showing possible early enterocolitis but otherwise unremarkable. Monitoring off of abx. # hypotension: with associated rayne and mildly elevated lactate on arrival, all improved with IVF. Unclear if sepsis contributed versus all volume related. Resolved. # svt: has had runs of svt as well as runs of bradycardia--suspect SSS. Discussed with family, given goals of care at this point will not w/u further or consider cardiology consultation. Family agrees with this plan. # pyuria: has been on several different abx since admission: 1 dose vanc and zosyn, cefepime x 2 days and ertapenem x 2 days. Urine cultures with low colony counts of 2 different organisms not c/w infection. Watching off of abx as above. # metastatic rectal/colon cancer: last chemo approximately 1 month ago, diffuse hepatic and osseus mets noted. oncology met with patient and his family regarding poor px, goals of care etc. They are opting to transition to comfort care with plan for hospice evaluation today. # left inguinal hernia: it is noted to be painful especially when standing, ct with only fat in the hernia, plan for paracentesis today # ascites/anasarca: with diffuse hepatic mets as well as diastolic dysfunction underlying this, plan for paracentesis today # malnutrition: calorie counts, dietary involved # anemia: stable monitoring # nephrolithiasis/cholelithiasis: no acute issues # bilateral pleural effusions/infiltrates: without significant respiratory complaints, o2 needs remain down # IP Care plan reviewed with family present at bedside. Subjective: no significant overnight events, patient did not sleep much last night, he and family agree that he is transitioning to comfort care Objective: Vital Signs Temp Pulse Resp BP Pulse Ox 36.7 C 74 24 H 131/70 H 100 08/27/16 07:22 08/27/16 07:22 08/27/16 07:22 08/27/16 07:22 08/27/16 07:22 Laboratory Results 08/27/16 05:50 08/27/16 04:40 08/26/16 08/27/16 08/28/16 05:59 05:59 05:59 Intake Total 1575 1910 Balance 1575 1910 PT 16.8 SEC (12.0-15.0) H 08/23/16 11:57 INR 1.36 (0.83-1.16) H 08/23/16 11:57 awake alert chronically ill appearing anicteric op clear poor dentition rrr no mrg cta with dec bs at bases soft distended nt ble edema warm dry well perfused oriented appropriate - Time Spent With Patient Time Spent with Patient: greater than 35 minutes Time Spent with Patient: Greater than 35 minutes spent on this patients care, greater than 50% of time spent counseling, educating, and coordinating care regarding the above mentioned plan. ICD10 Worksheet Patient Problems: Problems Problem Status Onset Nosocomial pneumonia Acute Severe sepsis Acute Cellulitis Acute
[2016-08-27] MEDS: METOPROLOL SUCCINATE XR 50 MG TAB PO SCH (17:33)
[2016-08-27] MEDS: NS 1,000 ML IV SCH (21:59)
[2016-08-28] MEDS: SERTRALINE HCL 50 MG TAB PO SCH (08:18)
[2016-08-28] MEDS: CHOLECALCIFEROL VIT D3 2,000 UNITS TAB/CAP PO SCH (08:20)
[2016-08-28] MEDS: MULTIVITAMINS 1 EACH TAB PO SCH (08:31)
[2016-08-28] MEDS: FAMOTIDINE 20 MG/NACL 50 ML IV SCH (08:32)
[2016-08-28] MEDS: ENOXAPARIN 40 MG/0.4 ML SYR SC SCH (08:33)
--- NOTE | 2016-08-28 10:14 | SOAPPROG ---
SOAP Progress Note Assessment/Plan: Assessment: 1. Rectal cancer w/ liver mets 2. Ascites 3. Hepatic encephalopathy Given poor performance status and worsening liver function, further attempts at treatment of the cancer will not be effective or appropriate. Hospice is the best option. I spent some time talking to his about the dying process. I suspect he has days to a few weeks. Plan: - hospice evaluation to continue - repeat paracentesis if ascites reaccumulates to the point where it is causing pain that cannot otherwise be managed. 25 min spent w/ pt and . 08/28/16 10:12 Subjective: resting comfortably. Objective: exam: mildly jaundiced Lungs CTAB CV RRR no mGR abd: +BS. mod distension Ext: 2+ edema Neuro: somnolent Vital Signs Temp Pulse Resp BP Pulse Ox 36.8 C 90 18 127/79 H 98 08/28/16 07:59 08/28/16 07:59 08/28/16 07:59 08/28/16 07:59 08/28/16 07:59 Laboratory Results 08/27/16 05:50 08/27/16 04:40 08/27/16 08/28/16 08/29/16 05:59 05:59 05:59 Intake Total 1910 900 Output Total 4 Balance 1910 896 PT 16.8 SEC (12.0-15.0) H 08/23/16 11:57 INR 1.36 (0.83-1.16) H 08/23/16 11:57 ICD10 Worksheet Patient Problems: Problems Problem Status Onset Nosocomial pneumonia Acute Severe sepsis Acute Cellulitis Acute
--- NOTE | 2016-08-28 12:16 | HOSPPROG ---
Hospitalist Progress Note Assessment/Plan: 75 yo M with hx of metastatic colon cancer as well as recent hospitalization for pna presenting with hypotension and ? sepsis # metastatic rectal cancer/colon cancer: with continued decline at this point, no longer appropriate for chemo. Looking into hospice at this point, patient does have fairly rapid decline. # hypotension: sepsis versus hypovolemia, resolved # svt: has had runs of svt as well as runs of bradycardia--suspect SSS. Discussed with family, given goals of care at this point will not w/u further or consider cardiology consultation. Family agrees with this plan. # pyuria: with cultures showing low colony counts, completed course of abx # left inguinal hernia: it is noted to be painful especially when standing, ct with only fat in the hernia, plan for paracentesis today # ascites/anasarca: with diffuse hepatic mets as well as diastolic dysfunction underlying this, plan for paracentesis today # malnutrition: calorie counts, dietary involved # anemia: stable monitoring # nephrolithiasis/cholelithiasis: no acute issues # bilateral pleural effusions/infiltrates: without significant respiratory complaints, o2 needs remain down # IP Care plan reviewed with family present at bedside. Subjective: no significant overnight events, patient confused this am, somnolent , not eating anything Objective: Vital Signs Temp Pulse Resp BP Pulse Ox 36.8 C 90 18 127/79 H 98 08/28/16 07:59 08/28/16 07:59 08/28/16 07:59 08/28/16 07:59 08/28/16 07:59 Laboratory Results 08/27/16 05:50 08/27/16 04:40 08/27/16 08/28/16 08/29/16 05:59 05:59 05:59 Intake Total 1910 900 Output Total 4 Balance 1910 896 PT 16.8 SEC (12.0-15.0) H 08/23/16 11:57 INR 1.36 (0.83-1.16) H 08/23/16 11:57 somnolent chronically ill appearing anicteric op clear poor dentition rrr no mrg cta with dec bs at bases soft distended nt ble edema warm dry well perfused encephalopathic ICD10 Worksheet Patient Problems: Problems Problem Status Onset Nosocomial pneumonia Acute Severe sepsis Acute Cellulitis Acute
[2016-08-28] MEDS: METOPROLOL SUCCINATE XR 50 MG TAB PO SCH (18:12)
[2016-08-28] MEDS: FAMOTIDINE 20 MG TAB PO SCH (22:52)
[2016-08-29] MEDS: MULTIVITAMINS 1 EACH TAB PO SCH (08:00)
[2016-08-29] MEDS: ENOXAPARIN 40 MG/0.4 ML SYR SC SCH (08:00)
[2016-08-29] MEDS: FAMOTIDINE 20 MG TAB PO SCH ×2 (08:00→20:43)
[2016-08-29] MEDS: SERTRALINE HCL 50 MG TAB PO SCH (11:06)
[2016-08-29] MEDS: ONDANSETRON 4 MG/2 ML VIAL IVP PRN (11:06)
[2016-08-29] MEDS: CHOLECALCIFEROL VIT D3 2,000 UNITS TAB/CAP PO SCH (11:08)
--- NOTE | 2016-08-29 11:18 | SOAPPROG ---
SOAP Progress Note Assessment/Plan: Assessment: 1. Rectal cancer w/ liver mets 2. Ascites 3. Hepatic encephalopathy Given poor performance status and worsening liver function, further attempts at treatment of the cancer will not be effective or appropriate. Hospice is the best option. I suspect he has days to a few weeks. Plan: - hospice evaluation to continue - repeat paracentesis if ascites reaccumulates to the point where it is causing pain that cannot otherwise be managed. 08/29/16 11:17 Subjective: arousable, confused Objective: Vital Signs Temp Pulse Resp BP Pulse Ox 98.8 F 82 18 140/75 H 96 08/29/16 07:49 08/29/16 07:49 08/29/16 07:49 08/29/16 07:49 08/29/16 07:49 Laboratory Results 08/27/16 05:50 08/27/16 04:40 08/28/16 08/29/16 08/30/16 05:59 05:59 05:59 Intake Total 900 2930 Output Total 4 Balance 896 2930 PT 16.8 SEC (12.0-15.0) H 08/23/16 11:57 INR 1.36 (0.83-1.16) H 08/23/16 11:57 Physical Exam - Physical Exam General Appearance: obtunded Respiratory: decreased breath sounds Cardiac/Chest: regular rate, rhythm Abdomen: distended ICD10 Worksheet Patient Problems: Problems Problem Status Onset Nosocomial pneumonia Acute Severe sepsis Acute Cellulitis Acute
--- NOTE | 2016-08-29 13:18 | HOSPPROG ---
Hospitalist Progress Note Assessment/Plan: 75 yo M with hx of metastatic colon cancer as well as recent hospitalization for pna presenting with hypotension and sepsis # metastatic rectal cancer/colon cancer-with continued decline -no longer appropriate for chemo. - hospice consultation today - cont prn pain meds # h/o svt- also with intermittent bradycardia-suspected SSS. - family does not wish additional consultation or intervention # pyuria- completed course of abx - WBC elevated in 20's # left inguinal hernia- ct abdomen (personally reviewed and interpreted) herniation of omental fat in inguinal canal - moderate ascites s/p paracentesis yesterday # ascites/anasarca-with diffuse hepatic mets and diastolic dysfunction - patient more comfortable today - tx symptoms - no diuretics at this time # malnutrition-appetite is non-existent - calorie counts, dietary involved # anemia: stable monitoring # nephrolithiasis/cholelithiasis: no acute issues # bilateral pleural effusions/infiltrates-without reported SOB - oxygen saturations 96% on 2L - continue supportive care # hypotension: sepsis versus hypovolemia, resolved # diet - encouraging regular # proph - lovenox # dispo - planning to hospice after consultation I have discussed the case with Oncology - patient very appropriate for hospice consultation today Subjective: denies pain Objective: Vital Signs Temp Pulse Resp BP Pulse Ox 37.1 C 82 18 140/75 H 96 08/29/16 07:49 08/29/16 07:49 08/29/16 07:49 08/29/16 07:49 08/29/16 07:49 Laboratory Results 08/27/16 05:50 08/27/16 04:40 08/28/16 08/29/16 08/30/16 05:59 05:59 05:59 Intake Total 900 2930 Output Total 4 Balance 896 2930 PT 16.8 SEC (12.0-15.0) H 08/23/16 11:57 INR 1.36 (0.83-1.16) H 08/23/16 11:57 - Physical Exam Constitutional: no apparent distress Ears, Nose, Mouth, Throat: dry mucous membranes Cardiovascular: regular rate and rhythym Respiratory: no respiratory distress, no rales or rhonchi Gastrointestinal: normoactive bowel sounds, soft, non-tender abdomen Genitourinary: no bladder fullness Skin: warm, normal color Musculoskeletal: No asymmetric calves Neurologic: AAOx3 Psychiatric: interacting appropriately, not anxious Lymph, Heme, Immunologic: no cervical LAD ICD10 Worksheet Patient Problems: Problems Problem Status Onset Nosocomial pneumonia Acute Severe sepsis Acute Cellulitis Acute
[2016-08-29] MEDS: METOPROLOL SUCCINATE XR 50 MG TAB PO SCH (17:55)
[2016-08-30 05:48] VITALS: O2SAT 97
[2016-08-30 08:38] VITALS: BP 130/79; PULSE 92; RESP 18; TEMP 97.4
[2016-08-30] MEDS: SERTRALINE HCL 50 MG TAB PO SCH (09:00)
[2016-08-30] MEDS: CHOLECALCIFEROL VIT D3 2,000 UNITS TAB/CAP PO SCH (09:03)
[2016-08-30] MEDS: MULTIVITAMINS 1 EACH TAB PO SCH (09:03)
[2016-08-30] MEDS: FAMOTIDINE 20 MG TAB PO SCH (09:03)
[2016-08-30] MEDS: ENOXAPARIN 40 MG/0.4 ML SYR SC SCH (09:03)
--- NOTE | 2016-08-30 09:25 | PDIAF ---
- Diagnosis Diagnosis: metastatic rectal CA Code Status: Do Not Resuscitate - Medication Management Discharge Medications: Medications to Continue on Transfer Sertraline HCl [Zoloft 50mg (*)] 50 mg PO DAILY 08/18/15 [Last Taken 08/22/16] Cholecalciferol Vit D3 [Vitamin D3 (*)] 5,000 units PO DAILY 06/08/16 [Last Taken 08/22/16] Metoprolol Succinate Xr [Toprol Xl 50 mg (*)] 50 mg PO DAILY18 08/23/16 [Last Taken 08/22/16] LORazepam [Ativan (*)] 0.5 - 1 mg PO Q8HRS PRN #0 tab 08/29/16 [Last Taken Unknown] Ondansetron Odt [Zofran Odt 4 mg (*)] 4 mg PO Q4HRS PRN #0 tab 08/29/16 [Last Taken Unknown] Zolpidem Tartrate [Ambien 5MG (*)] 5 - 10 mg PO HS PRN #0 tab 08/29/16 [Last Taken Unknown] Discharge Medications: Refer to the Discharge Home Medication list for PRN reason. - Orders Services needed: Registered Nurse, Physical Therapy, Occupational Therapy Diet Recommendation: no restrictions on diet Diet Texture: Regular Texture Diet - Follow Up Care Current Providers and Referrals: Kali Hilton MD [Primary Care Provider] - As per Instructions
--- NOTE | 2016-08-30 09:55 | SOAPPROG ---
SOAP Progress Note Assessment/Plan: Assessment: 1. Rectal cancer w/ liver mets 2. Ascites 3. Hepatic encephalopathy Plan: - transfer to inpatient hospice today - will give lorazepam en route to help w/ pt's agitation/anxiety Subjective: resting. Objective: exam; resting. intermittently alert Lungs CTAB CV RRR no MGR Abd: +BS NT ND Ext: 3+ edema Skin: some purpura Vital Signs Temp Pulse Resp BP Pulse Ox 36.3 C 92 18 130/79 H 97 08/30/16 08:00 08/30/16 08:00 08/30/16 08:00 08/30/16 08:00 08/30/16 08:00 Laboratory Results 08/27/16 05:50 08/27/16 04:40 08/29/16 08/30/16 08/31/16 05:59 05:59 05:59 Intake Total 2930 800 Balance 2930 800 PT 16.8 SEC (12.0-15.0) H 08/23/16 11:57 INR 1.36 (0.83-1.16) H 08/23/16 11:57 ICD10 Worksheet Patient Problems: Problems Problem Status Onset Nosocomial pneumonia Acute Severe sepsis Acute Cellulitis Acute
[2016-08-30] MEDS: NS 1,000 ML IV SCH (10:41)
--- NOTE | 2016-08-30 18:01 | GDS ---
[f rep st] DISCHARGE SUMMARY DISCHARGE DIAGNOSES: Includes: 1. Metastatic rectal carcinoma/colon cancer. 2. History of supraventricular tachycardia. 3. Left inguinal hernia. 4. Ascites/anasarca. 5. Malnutrition. 6. Chronic anemia. 7. Nephrolithiasis. 8. Cholelithiasis. 9. Bilateral pleural effusions. HISTORY OF PRESENT ILLNESS: A 75-year-old male with a history of metastatic colon/rectal cancer who presents with hypotension and sepsis. For details of patient's initial presentation, please see e history and physical dated 08/23/2016. CONSULTATIVE SERVICES: Include Oncology. PROCEDURES: Patient underwent paracentesis on 08/27/2016. CT of the abdomen on 08/24/2016, shows bilateral pleural effusions. Moderate volume ascites. Herni ation of omental fat into the inguinal canal and wall thickening associated with colon and small bow el potentially secondary to hypoproteinemia. HOSPITAL COURSE: By issue: 1. Metastatic colon cancer. Patient has numerous hepatic metastases and manifestations of progress diana liver dysfunction. Patient is not felt to be a candidate for ongoing chemotherapy and/or treatm ent. Decision was made by patient and family to appropriately consult hospice. Patient is being tr ansitioned to hospice inpatient at [facility]. 2. 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 Patient will not go on diuretics or t reatment for fluid accumulation. He is satting in the high 90s on 2 L on the day of disposition. 3. Left inguinal hernia. The patient did have one paracentesis performed during his hospital stay relieving some pressure; however, with his related metastatic disease we anticipate that he will carson ccumulate this fluid very quickly. Hospice is aware and will help manage his pain symptoms ongoing. 4. Malnutrition. Patient has almost no appetite, has nominal caloric intake during this hospital s sandy. MEDICATIONS AT THE TIME OF DISPOSITION: Please reference med rec printed on 08/30/2016. Patient is being discharged to inpatient [facility]. RESULTS PENDING AT THE TIME OF THIS DICTATION: None. Spent greater than 30 minutes in the planning and coordination of this discharge. /[id number]/MODL
== END 2016-08-30 15:00 | disposition hospice, home (50) | DRG 871 ==
LOC: F2N 14:37 → F1N 08-27 16:12
PROVIDERS: ADMIT Internal Medicine Pulmonary Disease; ATTEND Internal Medicine Pulmonary Disease
PROC: 02HV33Z Insertion of Infusion Device into Superior Vena Cava, Percutaneous Approach (ICD-10-PCS; principal; 2016-08-23)
PROC: 0W9G3ZX Drainage of Peritoneal Cavity, Percutaneous Approach, Diagnostic (ICD-10-PCS; 2016-08-27)
DX: A41.9 Sepsis, unspecified organism (principal); R65.20 Severe sepsis without septic shock; N39.0 Urinary tract infection, site not specified; J18.9 Pneumonia, unspecified organism; R18.8 Other ascites; R60.1 Generalized edema; K40.90 Unilateral inguinal hernia, without obstruction or gangrene, not specified as recurrent; J90 Pleural effusion, not elsewhere classified; E43 Unspecified severe protein-calorie malnutrition; K80.20 Calculus of gallbladder without cholecystitis without obstruction; N20.0 Calculus of kidney; Z85.46 Personal history of malignant neoplasm of prostate; Z85.038 Personal history of other malignant neoplasm of large intestine; Z85.048 Personal history of other malignant neoplasm of rectum, rectosigmoid junction, and anus; C78.7 Secondary malignant neoplasm of liver and intrahepatic bile duct; I47.1 Supraventricular tachycardia; I10 Essential (primary) hypertension; Z87.891 Personal history of nicotine dependence; D64.9 Anemia, unspecified; R19.7 Diarrhea, unspecified; M54.9 Dorsalgia, unspecified
CPT/HCPCS: 96374; 97162-GP; 97166-GO; C1751; G8978-GP-CK; G8979-GP-CI; G8987-GO-CL; G8988-GO-CJ; J0153; J0692; J0696; J1335; J1642; J1650; J2405; J2543; J3370; P9016; P9041; Q9967